=== PATIENT | female | born 1995 | race Caucasian/White ===

== ENCOUNTER 2023-09-08 08:26 | Outpatient (CLI) | payer OTHER, SELFPAY ==
[2023-09-08 14:12] LABS: Chlamydia DNA Amplified* NOT DETECTED (No Detected); GC DNA Amplified* NOT DETECTED (No Detected)
== END 2023-09-08 08:27 | disposition home or self-care (01) ==
PROVIDERS: Visit Provider Registered Nurse
DX: N93.9 Abnormal uterine and vaginal bleeding, unspecified (principal)
CPT/HCPCS: 84443; 84703; 87491; 87591

== ENCOUNTER 2023-10-18 07:55 | Outpatient (CLI) | payer OTHER, SELFPAY ==
--- NOTE | 2023-10-18 08:15 | CRLHL7_ITS ---
For Patients: As a result of the Century Cures Act, medical imaging exams and procedure reports are released immediately into your electronic medical record. You may view this report before your referring provider. If you have questions, please contact your health care provider. ADDENDUM: The impression should state: Endometrial thickness 1 cm. Oswaldo Navarro M.D. Diagnostic Radiologist [employer]. [email or web address] BROCK/jj D& Transcribed: 10:52 a.m. INDICATION: abnormal uterine bleeding COMPARISON: none TECHNIQUE: 2D savage scale and color Doppler images were acquired of the pelvis using a transabdominal and transvaginal approach. FINDINGS: Sonographic images demonstrate a normal size and smooth outer contour of the uterus. Uterus measures 7.4 cm in length by 3.5 cm in AP diameter by 4.0 cm in transverse dimension. The myometrium has a normal uniform echotexture. The endometrial lining measures 10 mm in composite thickness. The right ovary measures 3.2 x 2.0 x 1.6 cm in size and the left ovary measures 3.8 x 2.5 x 2.8 cm. The ovaries demonstrate normal arterial and venous blood flow on color Doppler analysis. Dominant follicle left ovary. Mild pelvic free fluid. IMPRESSION: Endometrial fluid 1 cm. No uterine fibroid. No endometrial fluid. Dictated by Oswaldo Navarro MD @ 10/18/2023 11:07:53 AM (Electronically Signed)
== END 2023-10-18 07:56 | disposition home or self-care (01) ==
LOC: US 07:55
PROVIDERS: Visit Provider Registered Nurse
DX: N93.9 Abnormal uterine and vaginal bleeding, unspecified (principal)
CPT/HCPCS: 76830; 76856

== ENCOUNTER 2023-11-16 15:54 | Outpatient (CLI) | payer BC, SELFPAY ==
--- NOTE | 2023-11-16 16:00 | CRLHL7_ITS ---
For Patients: As a result of the Cures Act, medical imaging exams and procedure reports are released immediately into your electronic medical record. You may view this report before your referring provider. If you have questions, please contact your health care provider. INDICATION: First trimester scan, establish dates. COMPARISON: None. TECHNIQUE: Real-time savage-scale imaging of the pelvis was performed. FINDINGS: Sonographic imaging demonstrates a single living intrauterine gestation. The embryo demonstrates a regular cardiac rate measuring 139 beats per minute. The embryo`s crown-rump length measurement of 0.92 cm corresponds to a gestational age of 7 weeks 0 days with a sonographic due date of July 04, 2024. There is a normal-appearing yolk sac measuring up to 3 mm. There are no gross abnormalities noted within the embryo at this early state of development. The placenta has not yet developed. The gestational sac has a normal appearance and there is no evidence of a perigestational hemorrhage. The amount of fluid within the sac appears appropriate for gestational age. The cervix is closed. The myometrium appears normal. The ovaries are of normal size. The right ovary measures 2.7 x 1.2 x 1.8 cm. The left ovary measures 5.1 x 3.4 x 4.0 cm. The left ovary contains a small corpus luteum cyst of measuring 3.6 x 3.3 x 3.8 cm. There are no suspicious fluid collections noted in the cul-de-sac. IMPRESSION: Normal first trimester OB ultrasound exam. Gestational age calculated at 7 weeks 0 days with a sonographic due date of July 04, 2024. Dictated by Trevor Torres MD @ 11/18/2023 10:17:51 AM (Electronically Signed)
== END 2023-11-16 15:55 | disposition home or self-care (01) ==
LOC: US 15:55
PROVIDERS: Visit Provider Advanced Practice Midwife
DX: Z34.91 Encounter for supervision of normal pregnancy, unspecified, first trimester (principal); Z3A.01 Less than 8 weeks gestation of pregnancy; O20.9 Hemorrhage in early pregnancy, unspecified
CPT/HCPCS: 76817; 86703; 86706; 86803; 86850; 86900; 86901; 87086; 87340

== ENCOUNTER 2023-11-16 16:25 | Outpatient (CLI) | payer BC, SELFPAY | END 2023-11-16 16:26 | disposition home or self-care (01) | PROVIDERS: Visit Provider Advanced Practice Midwife | DX: Z34.91 Encounter for supervision of normal pregnancy, unspecified, first trimester (principal); Z3A.01 Less than 8 weeks gestation of pregnancy | CPT/HCPCS: 86592; 86703; 86704; 86706; 86762; 86787; 86803; 86850; 86900; 86901; 87086; 87340 ==

== ENCOUNTER 2024-02-09 08:55 | Outpatient (CLI) | payer BC, SELFPAY ==
--- NOTE | 2024-02-09 09:15 | US_ITS ---
Patient: NEELIMA RUSSELL Facility:?[facility] Patient ID:?[id number] Site Patient ID:?[id number]. Site :?[id number] Study:?US-OB Pelvis OB ANATOMY-02/09/2024 10:23:03 AM Ordering Physician:?CAROLINE ARAUJO M.D. Final Report: INDICATION: Evaluate anatomy. COMPARISON: 11/16/2023 TECHNIQUE: Real time savage scale imaging of the fetus was performed as well as color Doppler analysis of the umbilical vessels. FINDINGS: Sonographic imaging demonstrates a single living intrauterine gestation. Fetus demonstrates a regular cardiac rate of 149 beats per minute. Fetus has a breech position. The placenta lies left anterior without evidence of placenta previa. Placental edge 5.4 cm from the internal cervical os. Amniotic fluid volume appears normal. Single deepest vertical pocket: 4.2 cm. The cervix is closed and measures 4.4 cm in length. The composite ultrasound gestational age is calculated at 19 weeks 3 days with an estimated sonographic due date of 07/02/2024. The estimated weight is 308 grams which lies at the 44th %. The following biometric measurements were obtained: Biparietal diameter: 4.1 cm/18 weeks 2 days 6th% Head circumference: 16.8 cm/19 weeks 3 days 30th% Abdominal circumference: 14.7 cm/20 weeks 0 days 55th% Femur length: 3.1 cm/19 weeks 4 days 35th% The HC/AC ratio measures: 1.14 range (1.08-1.26) On anatomic survey, there is a normal appearance of the cerebral ventricles, cavum septi pellucidi, cisterna magna and cerebellum. The nose, lips, and facial profile appear normal. The cervical, thoracic and lumbar spine are well visualized and appear normal. There is a normal four-chamber heart view and the left and right ventricular outflow tracts appear normal. The diaphragm and stomach appear normal. The kidneys and bladder also appear normal. There is a normal three-vessel cord and cord insertion site. The four extremities appear normal. IMPRESSION: Normal OB ultrasound exam with concordance of clinical and sonographic dating. No intrinsic abnormalities noted on anatomic survey. Dictated by Oswaldo Navarro MD @ 02/09/2024 4:35:37 PM Signed by:?Oswaldo Navarro MD @02/09/2024 4:35:37 PM (Electronic Signature)
== END 2024-02-09 08:56 | disposition home or self-care (01) ==
LOC: US 08:55
PROVIDERS: Visit Provider Obstetrics & Gynecology
DX: Z34.02 Encounter for supervision of normal first pregnancy, second trimester (principal); Z3A.19 19 weeks gestation of pregnancy
CPT/HCPCS: 76805

== ENCOUNTER 2024-04-04 16:44 | Outpatient (CLI) | payer BC, SELFPAY | END 2024-04-04 16:45 | disposition home or self-care (01) | PROVIDERS: Visit Provider Registered Nurse | DX: O26.892 Other specified pregnancy related conditions, second trimester (principal); Z67.91 Unspecified blood type, Rh negative; Z3A.27 27 weeks gestation of pregnancy; Z20.828 Contact with and (suspected) exposure to other viral communicable diseases | CPT/HCPCS: 86592; 86747; 86850; J2791 ==

== ENCOUNTER 2024-04-11 07:50 | Outpatient (CLI) | payer BC, SELFPAY | END 2024-04-11 07:51 | disposition home or self-care (01) | LOC: NFLDREF 04-15 11:19 | PROVIDERS: Visit Provider Registered Nurse | DX: R73.09 Other abnormal glucose (principal) | CPT/HCPCS: 82951; 82952 ==

== ENCOUNTER 2024-05-02 11:54 | Outpatient (CLI) | payer BC, SELFPAY ==
--- NOTE | 2024-05-02 12:15 | CRLHL7_ITS ---
For Patients: As a result of the Century Cures Act, medical imaging exams and procedure reports are released immediately into your electronic medical record. You may view this report before your referring provider. If you have questions, please contact your health care provider. OB ULTRASOUND Clinical History: ANTONETTE by LMP: 06/30/2024. GA: 31w, 4d. Comparison 02/09/2024, 11/16/2023. Single. INDICATION: Gestational diabetes mellitus. CERVIX: Not visualized. POSITIONING: Vertex. AMNIOTIC FLUID: 5.6 cm. BIOPHYSICAL PROFILE: Total score: 8. Gross body movements: 2. tone: 2. Respiratory activity: 2. Amniotic fluid: 2. PLACENTA: Technique: Transabdominal. PLACENTA POSITION: Anterior. DOPPLER: heart rate: 147 bpm. Biometry: BPD: 8.3 cm. 33w, 2d, 88 percent. HC: 30.2 cm. 33w, 3d, 66 percent. AC: 29.27 cm. 33w, 2d, 90 percent. FL: 6.1 cm. 31w, 6d, 43 percent. FL/AC ratio: 20.94 percent. HC/AC ratio: 1.03. EFW: 2069 g. Weight: 4 lbs, 9 oz. age by this US: 33w, 0d. ATNONETTE by this US: 06/20/2024. Percentile by ANTONETTE: 81 percent. IMPRESSION: 1. Estimated weight is at the 81st percentile. 2. Abdominal circumference is at the 90th percentile. 3. Normal biophysical profile score of 8/8. Daryn Srivastava M.D. Body/Diagnostic Radiologist [email or web address] SP/Dictated by: Daryn Srivastava MD @ 05/03/2024 9:55:00 AM (Electronically Signed)
== END 2024-05-02 11:55 | disposition home or self-care (01) ==
LOC: US 11:55
PROVIDERS: Visit Provider Obstetrics & Gynecology
DX: O24.419 Gestational diabetes mellitus in pregnancy, unspecified control (principal); Z3A.31 31 weeks gestation of pregnancy
CPT/HCPCS: 76816; 76819

== ENCOUNTER 2024-05-10 06:46 | Outpatient (CLI) | payer BC, SELFPAY ==
--- NOTE | 2024-05-10 07:00 | CRLHL7_ITS ---
For Patients: As a result of the Century Cures Act, medical imaging exams and procedure reports are released immediately into your electronic medical record. You may view this report before your referring provider. If you have questions, please contact your health care provider. Indication: Gestational diabetes mellitus. Assess well-being. Biophysical profile examination Technique: Sonography of the gravid uterus was performed limited to only about which is discussed below. The study is performed as per biophysical profile protocol Comparison: May 02, 2024 Findings: The cervix was not visualized. Position is vertex. The single deepest pocket is 6.8 centimeters. The placenta is anterior. heart rate is 155 beats per minute which is normal The biophysical profile score is 6/8. Two points were deducted for lack of headache respiratory activity as per protocol. This means no episodes of breathing movements lasting at least 30 seconds during the period of observation. Impression: The biophysical profile score is 6/8. On May 02, 2024, the score was 8/8. Dictated by Segun Schulz MD @ 05/10/2024 7:47:28 AM (Electronically Signed)
== END 2024-05-10 06:47 | disposition home or self-care (01) ==
LOC: US 06:47
PROVIDERS: Visit Provider Obstetrics & Gynecology
DX: O24.419 Gestational diabetes mellitus in pregnancy, unspecified control (principal)
CPT/HCPCS: 76819

== ENCOUNTER 2024-05-19 08:06 | Outpatient (CLI) | payer BC, SELFPAY ==
--- OUTSIDE RECORDS SUMMARY | 2024-05-19 08:08 | XMS_ITS | Clinical Summary ---
Author Organization [facility] [employer] [facility] Address [place], [place] [address] Care Team Providers Care Talent Specialist Name Role Phone Barbara Doe Unavailable [phone] Unavailable [phone] Braxton Avery RN Unavailable Ce Hale RD Unavailable [phone] Pcp, No Primary Care Provider Unavailabl e Allergies No known active allergies Medications Medication Sig Dispensed Refills Start Date End Date Status ketoconazole 2% shampoo (NIZORAL) 2 % shampooIndications: Rash Shampoo the hair thoroughly each day for 3 days. 120 mL 02/11/2019 Active albuterol HFA (PROAIR HFA) 90 mcg/actuation inhalerIndications: Exercise-induced asthma 1-2 puff by mouth 15 minutes prior to exercise as needed. 1 Inhaler 3 06/13/2020 Active Active Problems Patient Care Coordination No te Formatting of this note migh t be different from the original. Nutrition Order 11/25/2021 Problem Noted Date Diagnosed Date Eating disorder 01/07/2023 Obesity, Class II, BMI 35-39.9 01/07/2023 Weight gain 11/02/2022 H/O: obesity 12/02/2021 Controlled substance agreement signed 04/23/2021 Overview: For Medical Weight Loss. Verbal Agreement. [facility]acy: [facility] [place] [phone] Obesity, Class I, BMI 30-34.9 04/23/2021 Vitamin D insufficiency 02/25/2021 Obesity (BMI 30.0-34.9) 02/25/2021 Impaired fasting glucose 02/25/2021 Overweight 01/28/2021 Family history of premature coronary heart disea se 01/28/2021 Screening for endocrine/metabolic/immunity disor ders 01/28/2021 Acanthosis nigricans 07/05/2017 Family history of diabetes mellitus 07/05/2017 Overview: Both parents, mom on insulin Skin tags, multiple acquired 07/05/2017 Overview: Left axilla Exercise-induced asthma 01/13/2013 Attention deficit disorder with hyperactivity(31 4.01) 03/16/2007 Resolved Problems Problem Noted Date Diagnosed Date Resolved Date Viral warts, unspecified 06/29/200706/2013 Immunizations Name Administration Dates Next Due AMB Influenza, IIV3 (Age >=3 years) Preserve Free (Flu Clinic Only) 08/16/2012 AMB Influenza, IIV3 (Age >=3 years)(Flu Clinic Only) 08/03/2013,09/26/2008 AMB Influenza, IIV4 PF (=>6 mos Flulaval,Fluzone Fluarix)(Flu Clinic Only) 08/24/2014 DTaP 08/05/2000, 8,02/06/1997,06/08 HIB HbOC (HibTITER) 04/03/1998 HIB PRP-T (ActHIB,Hiberix) 1996 HIB-HepB (Comvax) 02/06/1997 HPV 9 (Gardasil 9) 04/16/2017,12/07/2016, 016 Hepatitis A (Peds) 06/14/2008,06/01/2007 Hepatitis B (Peds) 1996,1996 Inactivated Polio Vaccine 08/05/2000 Influenza A (H1N1), Inactiva dereck (Age >=3 Years) 09/25/2009 Influenza, IIV3 (Age >=3 years) 09/28/2007,12/22 Influenza, IIV4 08/23/2020,08/24/2018,08/26/2016 Influenza, IIV4 (=>6mos) MDV 08/17/2019 MMR 08/05/2000,04/03/1998 Meningococcal Vaccine (Menactra) 06/14/2008 Meningococcal Vaccine (Menveo) 04/16/2015 Oral Polio Vaccine 04/03/1998,02/06/1997, 996 Td (Age >=7 Years) 08/24/2018 Tdap 06/14/2008 Tuberculin (PPD) 02/27/2013 Family History Medical History Relation Name Comments Diabetes Father Hyperlipidemia Father Hypertension Father Obesity Father Stroke Father Asthma Maternal Grandfather Cancer Maternal Grandfather lung Cancer Maternal Grandmother multipl e types of cancers, doing well Cancer-breast Maternal Grandmother Cancer-colon Maternal Grandmother Diabetes Mother Hypertension Mother Obesity Mother Stroke Mother Asthma Sister exercise induce d Anesthesia Problem No Family History Blood Disease No Family History Relation Name Status Comments Father Maternal Grandfather Maternal Grandmother Mother Sister Social History Tobacco Use Types Packs/Day Years Used Date Smoking Tobacco: Never Smokeless Tobacco: Never Tobacco Cessation:Counseling Given: Not Answered Alcohol Use Standard Drinks/Week Comments Not Currently 0 (1 standard drink = 0.6 oz pur e alcohol) 3 times a year PHQ-2 Answer Date Recorded PHQ-2 TOTAL SCORE 0 01/28/2021 Social Connections Answer Date Recorded Frequency of Communication with Friends and Fami ly Not on file 11/08/2023 Financial Resource Strain Answer Date R ecorded Difficulty of Paying Living Expenses 3 11/06/2022 Difficulty of Paying Living Expenses Not on file 11/06/2022 Food Insecurity Answer Date Recorded Worried About Running Out of Food in the Last Ye ar 1 11/06/2022 Transportation Needs Answer Date Record ed Lack of Transportation (Medical) 1 11/06/2022 Housing Stability Answer Date Recorded Unable to Pay for Housing in the Last Year 1 11/06/2022 Education Answer Date Recorded What is the highest level of school you have completed or the highest degree you have received? 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 Gender Identity Not on file Sexual Orientation Not on file Obstetrics History Para Term AB IAB SAB Ectopic Multiple Livin g Live Births 0 0 0 0 0 0 0 0 0 0 Last Filed Vital Signs Vital Sign Reading Time Taken Comments Blood Pressure 124/83 06/28/2023 8:00 AM CDT patient reported Pulse 87 06/28/2023 8:00 AM CDT patient reported Temperature 37.1 ??C (98.7 ??F) 03/12/2022 4 :22 PM CDT Respiratory Rate - - Oxygen Saturation 97% 11/06/2022 10: 29 AM MOTORBOAT MECHANIC HELPER Inhaled Oxygen Concentration - - Weight 87.5 kg (193 lb) 07/09/2023 3:00 PM CDT Height 158.1 cm (5' 2.24) 07/09/2023 3 :00 PM CDT Body Mass Index 35.02 07/09/2023 3:00 PM CDT Plan of Treatment Health Maintenance Due Date Last Done Comments HIV for age 15-65 2011 Hepatitis C screening for age 18-79 2014 Depression screening for age 12+ 01/29/2022 01/29/2021, 01/28/2021, 01/28/2021, Additional history exists COVID-19 vaccine series () 07/09/2023 12/04/2021, 01/10/2021, 12/13/2020 BMI (ht and wt on same day) for age 18+ 07/09/2024 07/09/2023, 04/29/2023, 02/18/2023, Additional history exists Influenza for age 9-49 07/09/2024 0, 08/17/2019, 08/24/2018, Additional history exists Pap test for age 21-65 09/08/2026 3, 09/08/2023, 08/15/2020, Additional history exists Tetanus booster 08/24/2028 08/24/2018, 06/14/2008 Tdap Completed 06/14/2008 Pneumococcal series for age 6-64 Aged Out No longer eligible based on patient's age to complete this topic Procedures Procedure Name Priority Date/Time Associated Diagnosis Comments HPV THIN PREP Routine 09/08/2023 12:00 PM CDT from Last 3 Months or Most Recently Relevant to Health Maintenance Results * HPV HIGH RISK (09/08/2023 12:00 PM CDT) TYPE 16 Negative Negative 09/10/2023 1:47 PM CDT [facility] TYPE 18 Negative Negative 09/10/2023 1:47 PM CDT [facility] TRAL LAB[facility]ORY OTHER HIGH RISK TYPES Negative Negative 09/10/2023 1:47 PM CDT [facility] TRA LABOR[facility] Other (Cervical) 09/08/2023 12:00 PM CDT 09/08/2023 5:35 PM CDT Narrative [facility] - 09/10/2023 1:47 PM CDT HPV types 16, 18, 31, 33, 35, 39, 45, 51, 52, 56, 58, 59, 66 and 68 DNA were undetectable or below the pre-set threshold. Methodology: Jay Owen 4800 HPV Test Delmy Kelly NP MICROBIOLOGY [facility] [address] [place] [address], from Last 3 Months or Most Recently Relevant to Health Maintenance Care Teams Talent Specialist Relationship Specialty Start Date End Date Pcp, No . PCP - General 05/20/23 Barbara Doe CASH PROCESSING SPECIALIST [address] [place] [address] Nurse Practitioner Clinical Nurse Specialist 01/07/21 Samara Mauricio, RD [address] [place] [address] Registered Dietitian Casino Enforcement Agent 01/07/21 Braxton Avery, RN [address] [place] [address] Registered Nurse Registered Nurse 01/07/[address] [address] Casino Enforcement Agent 10/27/22
--- NOTE | 2024-05-19 08:15 | CRLHL7_ITS ---
For Patients: As a result of the Century Cures Act, medical imaging exams and procedure reports are released immediately into your electronic medical record. You may view this report before your referring provider. If you have questions, please contact your health care provider. INDICATION: GDM COMPARISON: 05/10/2024 TECHNIQUE: Real time savage scale imaging of the fetus was performed. Without non-stress testing. FINDINGS: Sonographic imaging demonstrates a single living intrauterine gestation. Fetus demonstrates a regular cardiac rate of 155 beats per minute. Fetus has a vertex position. The amniotic fluid volume appears normal and there is a single deepest pocket measurement of 4.4 cm. The fetus was active and demonstrated normal breathing movements. There was normal flexion and extension of the trunk and extremities. IMPRESSION: Normal biophysical profile score of 8 out of 8. Dictated by Oswaldo Navarro MD @ 05/20/2024 7:31:46 PM (Electronically Signed)
== END 2024-05-19 08:07 | disposition home or self-care (01) ==
LOC: US 08:07
PROVIDERS: Visit Provider Obstetrics & Gynecology
DX: O24.419 Gestational diabetes mellitus in pregnancy, unspecified control (principal)
CPT/HCPCS: 76819

== ENCOUNTER 2024-05-24 08:45 | Outpatient (CLI) | payer BC, SELFPAY ==
--- NOTE | 2024-05-24 08:45 | CRLHL7_ITS ---
For Patients: As a result of the Century Cures Act, medical imaging exams and procedure reports are released immediately into your electronic medical record. You may view this report before your referring provider. If you have questions, please contact your health care provider. INDICATION: GDM COMPARISON: 05/19/2024 TECHNIQUE: Real time savage scale imaging of the fetus was performed. Without non-stress testing. FINDINGS: Sonographic imaging demonstrates a single living intrauterine gestation. Fetus demonstrates a regular cardiac rate of 152 beats per minute. Fetus has a vertex position. The amniotic fluid volume appears normal and there is a single deepest pocket measurement of 4.8 cm. The fetus was active and demonstrated normal breathing movements. There was normal flexion and extension of the trunk and extremities. IMPRESSION: Normal biophysical profile score of 8 out of 8. Dictated by Oswaldo Navarro MD @ 05/25/2024 9:45:02 AM (Electronically Signed)
--- OUTSIDE RECORDS SUMMARY | 2024-05-24 08:47 | XMS_ITS | Clinical Summary ---
Author Organization [employer] [facility] [employer] Address [place], [place] [address] Care Team Providers Care Bottle Capping Machine Operator Name Role Phone Barbara Doe Unavailable [phone] Unavailable [phone] Braxton Avery RN Unavailable Ce Hale RD Unavailable [phone] Pcp, No Primary Care Provider Unavailabl e [...] Loss. Verbal Agreement. Pharmacy: [facility] [place] [phone] Obesity, Class I, BMI 30-34.9 04/23/2021 Vitamin [...] recorded on cert ificate 09/30/2021 1:23 PM CHIEF TECHNICIAN Gender Identity Not on file Sexual Orientation [...] Oxygen Saturation 97% 11/06/2022 10: 29 AM CHIEF TECHNICIAN Inhaled Oxygen Concentration - - Weight 87.5 [...] 16 Negative Negative 09/10/2023 1:47 PM CDT [facility] TRAL LABORATORY TYPE 18 Negative Negative 09/10/2023 1:47 PM CDT [facility] TRAL LAB[facility] OTHER HIGH RISK TYPES Negative Negative 09/10/2023 1:47 PM CDT [facility] TRA LABORATORY Other (Cervical) 09/08/2023 12:00 PM CDT 09/08/2023 5:35 PM CDT Narrative [facility] - 09/10/2023 1:47 PM CDT HPV types 16, 18, 31, 33, 35, 39, 45, 51, 52, 56, 58, 59, 66 and 68 DNA were undetectable or below the pre-set threshold. Methodology: Jay Owen 4800 HPV Test Delmy Kelly NP MICROBIOLOGY [facility] [address] [place] [address], from Last 3 Months or Most Recently Relevant to Health Maintenance Care Teams Bottle Capping Machine Operator Relationship Specialty Start Date End Date Pcp, No . PCP - General 05/20/23 Barbara Doe X RAY EQUIPMENT TESTER [address] [place] [address] Nurse Practitioner Clinical Nurse Specialist 01/07/21 Samara Mauricio, RD [address] [place] [address] Registered Dietitian Digital Marketing Specialist 01/07/21 Braxton Avery, RN [address] [place] [address] Registered Nurse Registered Nurse 01/07/[address] [address] Digital Marketing Specialist 10/27/22
== END 2024-05-24 08:46 | disposition home or self-care (01) ==
LOC: US 08:45
PROVIDERS: Visit Provider Obstetrics & Gynecology
DX: O24.419 Gestational diabetes mellitus in pregnancy, unspecified control (principal)
CPT/HCPCS: 76819

== ENCOUNTER 2024-05-31 09:51 | Outpatient (CLI) | payer BC, SELFPAY ==
--- OUTSIDE RECORDS SUMMARY | 2024-05-31 09:54 | XMS_ITS | Clinical Summary ---
Author Organization [employer] [facility] [employer] [facility] Address [place], [place] [address] Care Team Providers Care Whipper Name Role Phone Barbara Doe Unavailable [phone] Unavailable [phone] Braxton Avery RN Unavailable Ce Hale RD Unavailable [phone] Pcp, No Primary Care Provider Unavailabl e [...] Loss. Verbal Agreement. 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 Gender Identity Not on file Sexual Orientation [...] Oxygen Saturation 97% 11/06/2022 10: 29 AM CASHIER GAMBLING Inhaled Oxygen Concentration - - Weight 87.5 [...] 16 Negative Negative 09/10/2023 1:47 PM CDT [facility] TRAL LABORAT[facility] TYPE 18 Negative Negative 09/10/2023 1:47 PM CDT [facility] TRAL LABORATORY OTHER HIGH RISK TYPES Negative Negative 09/10/2023 1:47 PM CDT [facility] TRA LABORATORY Other (Cervical) 09/08/2023 12:00 PM CDT 09/08/2023 5:35 PM CDT Narrative [facility] - 09/10/2023 1:47 PM CDT HPV types 16, 18, 31, 33, 35, 39, 45, 51, 52, 56, 58, 59, 66 and 68 DNA were undetectable or below the pre-set threshold. Methodology: Jay Owen 4800 HPV Test Delmy Kelly NP MICROBIOLOGY [facility] [address] [place] [address], from Last 3 Months or Most Recently Relevant to Health Maintenance Care Teams Whipper Relationship Specialty Start Date End Date Pcp, No . PCP - General 05/20/23 Barbara Doe RIGGER SUPERVISOR [address] [place] [address] Nurse Practitioner Clinical Nurse Specialist 01/07/21 Samara Mauricio, RD [address] [place] [address] Registered Dietitian Marketing Automation Specialist 01/07/21 Braxton Avery, RN [address] [place] [address] Registered Nurse Registered Nurse 01/07/[address] [address] Marketing Automation Specialist 10/27/22
[2024-05-31 09:59] VITALS: TEMP 36.7
--- NOTE | 2024-05-31 11:35 | PC.OBNST ---
NST Note NST Note Start: 05/31/24 09:51 Freq: ONCE Status: Active Protocol: Document 05/31/24 11:30 CUDDYH (Rec: 05/31/24 11:34 CUDDYH [id number]) NST Note 1 Para (# of births) 0 EDC 06/30/24 Gestational Age In Weeks & Days 35 Weeks & 5 Days High Risk Factors Diabetes - Gestational Insulin Patient Presented with Complaint(s) of Other Other Complaints Pt sent from clinic for a BPP of 02/13. Reactive Yes Appropriate for Gestational Age Yes RN Briana Alberto RN Date 05/31/24 Reactive Yes Appropriate for Gestational Age Yes RN Dr. Tillman Date 05/31/24 OB NST charge Yes Complete NST Note via Write Note Yes The provider's electronic signature indicates the NST is reactive/appropriate for gestational age. *Note to provider: If an addendum is required, open the patient's chart and click on the note under the Nurse/Allied Health tab.
--- NOTE | 2024-05-31 11:48 | PM.OBLDTN ---
OB - Triage/Final Diagnosis Visit Information Time Seen by Provider: 11:35 Date Seen: 05/31/24 Narrative: The patient is a 29 year old 1 para 0 at 35w5d GA by LMP, who presents for monitoring after a 4/8 BPP prior to a planned OB visit. Ob visit was canceled, where patient presented for extended monitoring in OB triage. is complicated by GDM A2, exercise-induced asthma, obesity. Lauren is feeling well today with no acute concerns. She notes intermittent cramping sensation but only if she has a full bladder. She denies any regular/painful uterine contractions, vaginal bleeding or leaking of fluid. Endorses active movement. Evaluation Vital signs: Vital Signs - 24 hr 05/31/24 09:59 Temperature 98.0 F Comments: General: Alert and oriented, in no acute distress Psych: Appropriate mood and affect monitoring: Extended monitoring was performed for nearly 2 hours. Throughout this time, status was entirely reassuring. Final 20 minutes of monitoring to complete her BPP included a baseline of 140 beats per minute, moderate variability, accelerations present, no decelerations noted. In total, she had a 6/10 BPP today. [place]: Contractions every few minutes, asymptomatic. Nonpalpable by RN exam. Final Diagnosis (1) Abnormal test: Status: Acute Problem details: Lauren had nearly 2 hours of extended monitoring after a 4/8 BPP prior to planned clinic visit. status was entirely reassuring throughout this time. Reactive NST, making her total BPP 6/10. We reviewed the significance of an equivocal biophysical profile and the negative and positive predictive values of monitoring in general. Given her gestation, explained that we are recommended to repeat her BPP in 24 hours given an equivocal result. Orders placed, scheduled for follow-up tomorrow. Explained if she had an abnormal test result tomorrow, this may warrant medically indicated delivery. I explained that betamethasone would not be indicated for late steroids in the setting of GDM A2. All questions answered, strict return precautions reinforced. (2) GDM, class A2: Status: Acute (3) ADD (attention deficit disorder): Status: Acute Problem details: untreated (4) Obesity: Status: Chronic (5) Exercise-induced asthma: Status: Chronic Problem details: has not recently used inhaler
== END 2024-05-31 11:30 | disposition home or self-care (01) ==
LOC: OB OUT 09:51 → OB 09:51
PROVIDERS: Visit Provider Obstetrics & Gynecology
DX: O24.419 Gestational diabetes mellitus in pregnancy, unspecified control (principal); Z3A.35 35 weeks gestation of pregnancy
CPT/HCPCS: 59025; 76816; 76819; G0463

== ENCOUNTER 2024-06-01 10:40 | Outpatient (CLI) | payer BC, SELFPAY ==
--- NOTE | 2024-06-01 10:45 | CRLHL7_ITS ---
For Patients: As a result of the Century Cures Act, medical imaging exams and procedure reports are released immediately into your electronic medical record. You may view this report before your referring provider. If you have questions, please contact your health care provider. INDICATION: GDM COMPARISON: 05/31/2024 TECHNIQUE: Real time savage scale imaging of the fetus was performed. Without non-stress testing. FINDINGS: Sonographic imaging demonstrates a single living intrauterine gestation. Fetus demonstrates a regular cardiac rate of 155 beats per minute. Fetus has a vertex position. The amniotic fluid volume appears normal and there is a single deepest pocket measurement of 7.2 cm. The fetus was active and demonstrated normal breathing movements. There was normal flexion and extension of the trunk and extremities. IMPRESSION: Normal biophysical profile score of 8 out of 8. Dictated by Oswaldo Navarro MD @ 06/02/2024 11:21:10 AM (Electronically Signed)
--- OUTSIDE RECORDS SUMMARY | 2024-06-01 10:54 | XMS_ITS | Clinical Summary ---
Author Organization [facility] [employer] [facility] Address [place], [place] [address] Care Team Providers Care Blood Bank Specialist Name Role Phone Barbara Doe Unavailable [phone] Unavailable [phone] Braxton Avery RN Unavailable Ce Hale RD Unavailable [phone] Pcp, No Primary Care Provider Unavailabl e [...] Loss. Verbal Agreement. Pharmacy: [facility] [place] [phone] Obesity, Class I, BMI 30-34.9 04/23/2021 Vitamin [...] recorded on cert ificate 09/30/2021 1:23 PM RESPIRATORY THERAPIST ASSISTANT Gender Identity Not on file Sexual Orientation [...] Oxygen Saturation 97% 11/06/2022 10: 29 AM RESPIRATORY THERAPIST ASSISTANT Inhaled Oxygen Concentration - - Weight 87.5 [...] 16 Negative Negative 09/10/2023 1:47 PM CDT [facility] TRAL LABORATORY TYPE 18 Negative Negative 09/10/2023 1:47 PM CDT [facility] TRAL LABORATORY OTHER HIGH RISK TYPES Negative Negative 09/10/2023 1:47 PM CDT [facility] TRA LABORATORY Other (Cervical) 09/08/2023 12:00 PM CDT 09/08/2023 5:35 PM CDT Narrative [facility] LABORATORY - 09/10/2023 1:47 PM CDT HPV types 16, 18, 31, 33, 35, 39, 45, 51, 52, 56, 58, 59, 66 and 68 DNA were undetectable or below the pre-set threshold. Methodology: Jay Owen 4800 HPV Test Delmy Kelly NP MICROBIOLOGY [facility] [address] [place] [address], from Last 3 Months or Most Recently Relevant to Health Maintenance Care Teams Blood Bank Specialist Relationship Specialty Start Date End Date Pcp, No . PCP - General 05/20/23 Barbara Doe CURATOR OF MANUSCRIPTS [address] [place] [address] Nurse Practitioner Clinical Nurse Specialist 01/07/21 Samara Mauricio, RD [address] [place] [address] Registered Dietitian Aerial Applicator Pilot 01/07/21 Braxton Avery, RN [address] [place] [address] Registered Nurse Registered Nurse 01/07/[address] [address] Aerial Applicator Pilot 10/27/22
== END 2024-06-01 10:41 | disposition home or self-care (01) ==
LOC: US 10:41
PROVIDERS: Visit Provider Obstetrics & Gynecology
DX: O24.419 Gestational diabetes mellitus in pregnancy, unspecified control (principal)
CPT/HCPCS: 76819; 87081; 87653

== ENCOUNTER 2024-06-08 16:06 | Inpatient (IN) | payer BC, SELFPAY ==
--- OUTSIDE RECORDS SUMMARY | 2024-06-08 16:10 | XMS_ITS | Clinical Summary ---
Author Organization [facility] Address [place], [place] [address] Care Team Providers Care Retread Technician Name Role Phone Barbara Doe Unavailable [phone] Unavailable [phone] Braxton Avery RN Unavailable Ce Hale RD Unavailable [phone] Pcp, No Primary Care Provider Unavailabl e [...] Loss. Verbal Agreement. Pharmacy: [facility] [place] [phone] Obesity, Class I, BMI 30-34.9 04/23/2021 Vitamin [...] recorded on cert ificate 09/30/2021 1:[address] VENDOR Gender Identity Not on file Sexual Orientation [...] Oxygen Saturation 97% 11/06/2022 10: [address] VENDOR Inhaled Oxygen Concentration - - Weight 87.5 [...] 16 Negative Negative 09/10/2023 1:47 PM CDT [facility] TRAL LABORATORY TYPE 18 Negative Negative 09/10/2023 1:47 PM CDT [facility] TRAL LABORATORY OTHER HIGH RISK TYPES Negative Negative 09/10/2023 1:47 PM CDT [facility] TRA LABORATORY Other (Cervical) 09/08/2023 12:00 PM CDT 09/08/2023 5:35 PM CDT Narrative [facility] LABORATORY - 09/10/2023 1:47 PM CDT HPV types 16, 18, 31, 33, 35, 39, 45, 51, 52, 56, 58, 59, 66 and 68 DNA were undetectable or below the pre-set threshold. Methodology: Jay Owen 4800 HPV Test Delmy Kelly NP MICROBIOLOGY [facility] [address] [place] [address], from Last 3 Months or Most Recently Relevant to Health Maintenance Care Teams Retread Technician Relationship Specialty Start Date End Date Pcp, No . PCP - General 05/20/23 Barbara Doe BALLASTER [address] [place] [address] Nurse Practitioner Clinical Nurse Specialist 01/07/21 Samara Mauricio, RD [address] [place] [address] Registered Dietitian Foot Tender 01/07/21 Braxton Avery, RN [address] [place] [address] Registered Nurse Registered Nurse 01/07/[address] [address] Foot Tender 10/27/22
--- NOTE | 2024-06-08 16:28 | W.PM.LDBA ---
Subjective History of Present Illness Time Seen by Provider: 16:53 Date Seen: 06/08/24 Narrative: Lauren is a 29yo is being admitted to Labor and Delivery for induction of labor due to preeclampsia without severe features and insulin-requiring gestational diabetes. She is a 29 year old at 36 weeks 6 days gestation. Her full history and physical was dictated by Dr. Argueta on 06/06/2024. Please see this for details. Specific Issues/Plans Partner: Jcarlos [id number]: neg, male gender H&P by CGM on 06/06/24 # GDM A2- 18 units of NPH at nightime. - Seeing a sweet pickled fruit maker on 04/18 - 05/04/2024: Diabetes education and initiation of insulin. surveillance, twice weekly. Order form completed Greater than 50% fastings elevated, normal post prandials. 12 units NPH at at bedtime -05/12/24: No improvement in fasting glucose levels. Increased to 14 units NPH at HS. -05/19/24: Fastings still mildly elevated. Increased to 16 u NPH at HS. -05/24/24: Increased to 18u NPH QHS. -06/01/24: IOL scheduling form sent out for 06/23/24 at 39 weeks #Elevated BP at 36 4/7 weeks -Sent to L&D for further monitoring # BMI 38. -aspirin at 12 weeks, started -Recommend growth in third trimester and consider weekly testing after 36 weeks # Hx of asthma, denies recent inhaler use # RH negative 28 wk Rhogam: 04-04-24 # Possible parvovirus exposure. Positive IgG, Negative IgM. Imaging: Growth US at 32 weeks: EFW 4 lb 9 oz (81%), AC 90%, SDP 5.6 cm, vertex Growth at 36 weeks 05/21/24:Single intrauterine gestation in a vertex presentation. Estimated weight is 2916 grams which corresponds to the 68th percentile for gestational age. COVID: Flu: TDAP:04/17/24 OB - Problem Based A/P Additional Plan (1) Pre-eclampsia during in third trimester, antepartum: Status: Acute Plan: 1. Admission for cervical ripening with vaginal Cytotec overnight. 2. Dr. Billie Tillman with assume care tomorrow at 7AM on 06/09/2024 3. GBS negative. 4. Bloodtype O negative. 5. Plan Pitocin by labor/induction protocol starting tomorrow morning. OB Exam Physical Exam Narrative: GENERAL APPEARANCE: Pleasant, , well-groomed woman in no acute distress. VITAL SIGNS: as noted in nursing notes HEAD: Normocephalic, atraumatic. THYROID: no masses, nodularity, tenderness or enlargement. LUNGS: Clear to auscultation bilaterally without wheezes, rales or rhonchi. HEART: Regular rate and rhythm with normal S1 and S2. No gallop, rub or murmur. ABDOMEN: Gravid. Soft, nontender, nondistended, with normal bowels sounds throughout. EFM: Baseline 140bpm. Accelerations: Present. Decelerations: Absent. Contractions: Absent. Reactive, category 1 TOCO: irritability. No specific contractions. SVE: 0.5/70/-2/mid/medium. Guthrie score: 5. EXTREMITIES: No cyanosis, clubbing, or varicosities. Edema: none NEUROLOGIC: Normal gait and balance. Normal deep tendon reflexes at bilateral patella 2+/2, equal without clonus. PSYCHIATRIC: alert and oriented x3. Normal speech pattern, eye contact and affect. SKIN: Warm, dry, and well perfused. Good turgor. No lesions, nodules or rashes.
[2024-06-08 16:43] VITALS: BP 131/78; PULSE 101; RESP 20; TEMP 36.8; O2SAT 98
[2024-06-08 16:53] VITALS: BMI 41.8
[2024-06-08 17:41] LABS: Hematocrit 33.8 % (33.0-51.0); Hemoglobin* 11.1 gm/dL (12.0-16.0); Mean Corpuscular HGB Conc 33 gm/dL (32-36); Mean Corpuscular Hemoglobin 26 pg (26-34); Mean Corpuscular Volume 80 fL (80-100); Platelet Count* 277 K/uL (140-440); Red Blood Count 4.23 m/uL (4.00-5.20); White Blood Count* 14.48 K/uL (4.50-11.00)
[2024-06-08 17:44] LABS: Slide Review Reflex No
[2024-06-08 17:56] LABS: Alanine Aminotransferase* 19 U/L (4-35); Aspartate Amino Transferase* 22 U/L (12-35); Blood Urea Nitrogen* 9 mg/dL (5-24); Creatinine* 0.5 mg/dL (0.5-1.5); Est. Creatinine Clearance* 132.49; Estimated Glomerular Filt Rate 131 ml/min
[2024-06-08] MEDS: miSOPROStoL 25 MCG/0.25 TABLET VAGINAL ×2 (18:08→21:15)
[2024-06-08] MEDS: INSULIN NPH 100 UNIT/ML 9 UNIT SUBCUT (21:09)
[2024-06-08] MEDS: MORPHINE 10 MG/ML inj IM (21:14)
[2024-06-08] MEDS: hydrOXYzine pamoate 25 MG CAPSULE 100 MG PO (21:14)
[2024-06-08 21:22] VITALS: BP 145/77; PULSE 83
[2024-06-08 21:23] VITALS: BP 145/79; PULSE 75; PULSE 81; RESP 18; TEMP 37.1
[2024-06-08] MEDS: ONDANSETRON 2 MG/ML inj 4 MG IV (21:41)
[2024-06-09] VITALS (12 sets, daily range): BP systolic 110–139; BP diastolic 57–94; PULSE 67–105; RESP 18; TEMP 36.3–36.9; O2SAT 98–99
[2024-06-09] MEDS: miSOPROStoL 25 MCG/0.25 TABLET VAGINAL ×3 (00:09→06:22)
--- NOTE | 2024-06-09 07:46 | PM.OBPNL ---
Subjective Time Seen by Provider: 07:46 Date Seen: 06/09/24 Narrative: Lauren Qureshi is a 29yo at 37w0d GA ongoing IOL for preeclampsia without severe features and GDMA2 on insulin. Induction progress has included cytotec x6, last dose placed at 0622. She is feeling well, endorses cramping with cytotec. No vaginal bleeding or leaking of fluids. Endorses active movement. Objective Vital Signs: Last Vital Signs Temp 97.7 F 06/09/24 07:30 Pulse 73 06/09/24 07:30 Resp 18 06/09/24 06:12 BP 123/81 06/09/24 07:30 Pulse Ox 99 06/09/24 07:30 Comments: General: Alert and oriented, in no acute distress. Rocking on labor ball. Cervix: /-2 by last RN exam FHR: Category 1. Baseline 130bpm, moderate variability, accelerations present, decelerations absent [place]: Alicia Q2-5 minutes EFW by US on 06/03: 2916g at 68%ile. Plan Plan: Lauren is a 29yo at 37 weeks ongoing IOL for preeclampsia without SF. is otherwise complicated by GDMA2 (insulin), ADD and exercise-induced asthma. - IOL progress has included cytotec x6, last at 0622. Her exam at that time was /-2 by RN. - Plan to recheck cervix at approximately 1030, likely plan will be further cervical ripening via cook catheter vs pitocin pending Guthrie score. - Continue BP monitoring, no signs/symptoms of severe features at this time - Continue BG monitoring per protocol, has not required short acting insulin since admission - BT O negative, active T/S on file - GBS negative
[2024-06-09] MEDS: MORPHINE 10 MG/ML inj IM (12:20)
[2024-06-09] MEDS: LACTATED RINGERS 1000 ML 1,000 ML 125 ML IV (16:33)
[2024-06-09] MEDS: OXYTOCIN 30 unit/500 ML in NS 30 UNIT/500 ML BAG IVPB (16:40)
[2024-06-09] MEDS: INSULIN NPH 100 UNIT/ML 9 UNIT SUBCUT (20:56)
[2024-06-09] MEDS: LACTATED RINGERS 1000 ML 1,000 ML 925 ML IV (23:53)
[2024-06-10] VITALS (74 sets, daily range): BP systolic 88–145; BP diastolic 41–92; PULSE 65–112; RESP 14–18; TEMP 36.4–36.9; O2SAT 92–100
[2024-06-10] MEDS: ROPIVACAINE 0.2% 100 ml 100 ML 12 MG EPIDURAL (00:34)
[2024-06-10] MEDS: BUPIVACAINE 0.25% PF 10 ML 10 ML ML EPIDURAL (00:34)
[2024-06-10] MEDS: PHENYLEPHRINE 100 MCG/ML SYRINGE IVP (00:40)
--- NOTE | 2024-06-10 00:42 | P.ANBPRC_ITS ---
PFSH PFS Medical History 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 (ICD-10) Surgical History History of tympanoplasty ?Z98.890 - Other specified postprocedural states (ICD-10) History of tonsillectomy and adenoidectomy ?Z90.89 - Acquired absence of other organs (ICD-10) History of wisdom tooth extraction ?K08.409 - Partial loss of teeth, unspecified cause, unspecified class (ICD- 10) History of cholecystectomy (04/12/17) ?Z90.49 - Acquired absence of other specified parts of digestive tract (ICD- 10) Family History Mother High blood pressure Diabetes Stroke Obesity Father High blood pressure Diabetes High cholesterol Stroke Obesity Maternal Grandfather Lung cancer Maternal Grandmother Breast cancer Colon cancer 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 ? Education: bachelors ? 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 ? Partner: Jcarlos, , general repair mechanic? ? Lives with: Jcarlos? ? Pets: dogs? ? Abuse: Denies past. Unable to assess current, partner present? ? Special Diet: Denies? ? Ok with a blood transfusion: yes? ? Culture or sabianism beliefs: denies? RISK FACTORS? ? Exercise Times/wk: Walking, less so now. ? ? Depression/Anxiety: denies? ? Previous Treatments: NA Therapy:NA Seat Belt Use: Routinely ? Smoking: Denies past/present? ? Alcohol/day: Denies while ? ? Caffeine: minimal? ? Drug Use: Denies past/present? ? What is your current living situation?: I presently have a place to live Problems where you live: no known problems In the past 12 months, utilities in danger of being shut off: no In past 12 months, lack of transportation kept you from medical appts, meetings, work, or getting things needed for daily living: no In the past 12 mos, have been you worried that your food would run out before you had money to buy more?: never true In the past 12 mos, the food you bought just didn't last and you didn't have money to buy more?: never true Smoking Status: Former smoker How often does anyone, including family, friends and others, physically hurt you : never How often does anyone, including family, friends and others, insult or talk down to you: never How often does anyone, including family, friends and others, threaten you with harm: never How often does anyone, including family, friends and others, scream or curse at you: never Little interest or pleasure in doing things: not at all Feeling down, depressed, or hopeless: not at all Meds Home Medications and Allergies Home Medications ?Medication ?Instructions ?Recorded ?Confirmed ?Type albuterol 90 mcg/actuation aerosol 2 spray inhalation BID-QID PRN 03/30/23 06/08/24 History inhaler docosahexaenoic acid 200 mg 1 mg PO 11/16/23 06/06/24 History capsule ( DHA) cholecalciferol (vitamin D3) 125 125 mcg PO QDAY 12/14/23 06/08/24 History mcg (5,000 unit) capsule aspirin 81 mg tablet,delayed 81 mg PO QDAY 01/12/24 06/08/24 History release (Cal Low Dose Aspirin) insulin NPH isoph U-100 human 100 18 unit subcut .hs 05/24/24 06/08/24 History unit/mL subcutaneous suspension (Humulin N NPH U-100 Insulin (isophane susp)) Allergies Allergy/AdvReac Type Severity Reaction Status Date / Time No Known Drug Allergies Allergy Verified 06/06/24 09:44 Results Labs Labs: Laboratory Results - last 24 hr 06/08/24 17:33 Antibody Identification No Antibodies Found by ARC Vital Signs Vital Signs: Last Vital Signs Temp 97.9 F 06/09/24 22:52 Pulse 75 06/10/24 00:42 Resp 18 06/09/24 06:12 BP 130/85 06/10/24 00:42 Pulse Ox 99 06/10/24 00:38 Weight: 103.782 kg Height: 157.48 cm Anesthesia Procedures Epidural Insertion Patient Location: OB Start Time: 00:15 Stop Time: 00:43 Start Date: 06/10/24 Stop Date: 06/10/24 Reason for Block: procedure for pain Patient Position: sitting Performed By: Bernard Mclain Preanesthetic Checklist: IV checked, risks and benefits discussed, monitors and equipment checked, pre-op evaluation, timeout performed and anesthesia consent Prep: chlorhexidine gluconate Monitoring: blood pressure monitoring, continuous pulse oximetry and heart rate Approach: midline Vertebral Space: lumbar (1-5) Epidural Technique: DINORAH saline Needle Type: Tuohy needle Injection Technique: continuous catheter Needle gauge: 17 Needle Length (cm): 10 cm Needle Insertion Depth (cm): 9 Catheter Gauge: 19 Catheter Type: multi-orifice Catheter at skin depth (cm): 15 Test Dose Result: negative and lidocaine 1.5% with epinephrine 1 to 200,000
[2024-06-10] MEDS: LACTATED RINGERS 1000 ML 1,000 ML 125 ML IV (00:59)
--- NOTE | 2024-06-10 02:24 | PM.OBPNL ---
Subjective Time Seen by Provider: 02:04 Date Seen: 06/10/24 Narrative: Lauren Qureshi is a 29yo at 37w0d GA ongoing IOL for preeclampsia without severe features and GDMA2 on insulin. Induction progress has included cytotec x6, cook catheter, pitocin. She was last 5/80/-3 by RN exam at 0000, requested epidural before AROM. She subsequently had some hypotension with associated category 2 FHR tracing, improved now with cessation of pitocin, BP support, IVF and position changes. I presented to bedside where Lauren notes she is comfortable. Feels groggy overall but has no nausea/vomiting or dizziness/lightheadedness. Contractions have essentially resolved since holding pitocin, plan to resume. General: Alert and oriented, in no acute distress FHR: Baseline 150bpm with moderate variability with accelerations, recent intermittent variable decelerations are currently absent [place]: Irritability without discrete contractions Cervix: 5/80/-2, head well applied. AROM performed with return of small volume clear to bloody show tinged fluid. Assessment/Plan: - Continue BP and BG monitoring per protocols - Resume pitocin at 6mu/min, titrate up 1-2u q30m pending FHR and toco data - Anticipate next exam in 4hours, sooner as clinically indicated - BT O negative - GNS negative Objective Vital Signs: Last Vital Signs Temp 98.4 F 06/10/24 02:22 Pulse 68 06/10/24 02:18 Resp 18 06/09/24 06:12 BP 112/53 L 06/10/24 02:18 Pulse Ox 98 06/10/24 01:55
--- NOTE | 2024-06-10 04:42 | PM.OBPNL ---
Subjective Time Seen by Provider: 04:44 Date Seen: 06/10/24 Narrative: Lauren Qureshi is a 29yo at 37w0d GA ongoing IOL for preeclampsia without severe features and GDMA2 on insulin. Induction progress has included cytotec x6, cook catheter, pitocin, AROM. At my last assessment, she was 5.5/80/-1 where FSE was placed. Lauren has had an intermittent category 2 FHR tracing since approximately 0400. There have been periods of intermittent late decelerations, intermittent variable decelerations and likely prolonged decelerations where monitoring was challenging due to repositioning. Most recently she had a prolonged deceleration at 0338, with subsequent recovery to the 160s bpm with moderate variability. Her pitocin has been turned off twice due to FHR changes. I expressed my concern to Lauren at time of my last exam regarding intolerance of labor, where I would recommend for persistent category 2 FHR tracing despite resuscitative efforts remote from delivery. Since that time, baby has demonstrated recurrent late decelerations with recovery to a baseline of 170bpm with periods of minimal and moderate variability. Accelerations are absent. Pitocin was turned off for a third time due to FHR changes. She is s/p IVF resuscitation and baby only tolerates the position she's in now. Altogether, I reviewed her labor course and my concern for intermittent category 2 FHR tracing throughout labor course. At present, she has a persistent category 2 FHR tracing for recurrent lates where pitocin has now been turned off x3. We have not seem significant improvement with repositioning or fluids. As such, I do recommend we proceed with primary delivery in the setting of persistent category 2 FHR tracing. Lauren expressed understanding and is agreeable to plan. We reviewed risks of surgery including bleeding, infection, damage to surrounding structures. Written consent obtained. All questions answered. - Plan to proceed to OR for primary . - Perioperative ancef and azithromycin ordered - BT O negative, active T/S on file - GBS negative - Peds to attend delivery for unscheduled for category 2 FHR Objective Vital Signs: Last Vital Signs Temp 98.4 F 06/10/24 03:47 Pulse 105 H 06/10/24 04:42 Resp 18 06/09/24 06:12 BP 92/61 06/10/24 04:42 Pulse Ox 100 06/10/24 03:56
[2024-06-10] MEDS: AZITHROMYCIN 500 MG in 0.9 % SODIUM CHLORIDE 250 ml 250 ML 255 MG IVPB (04:59)
--- NOTE | 2024-06-10 05:05 | PM.OBPRCCS ---
Procedure Time Seen by Provider: 06:30 Date of procedure: 06/10/24 Pre-op diagnosis: Persistent category 2 FHR tracing, preeclampsia without severe features, GDMA2 Post-op diagnosis: same Procedure Done: Global Will [facility] bill your pro fee for this procedure?: Yes Blood Loss Measurement Type: QBL (488) Bakri Used: No IV fluids (mL): 700 Urine Output (mL): 75 Urine Output Comment: Clear, yellow Surgeon: Billie Tillman MD Anesthesia Type: Epidural Findings: bradycardia Unremarkable uterus, fallopian tubes and ovaries Liveborn male fetus Procedure Name: Emergency delivery Procedure Description: Lauren is a 29yo at 37w1d GA who was ongoing IOL for preeclampsia without severe features and GDMA2. She had intermittent category 2 tracing, where primary was recommended for persistent category 2 FHR tracing remote from delivery at approximately 0445. OR team was notified and en route. At 0515 she had a deep, late deceleration to a gigi of 80bpm. Fetus briefly recovered to 130bpm, then a second deceleration occurred to a gigi of 70bpm. Decision was made to proceed with emergency . Patient was rapidly taken to the operating room with IV running. She arrived to the OR at 0524. She received cefazolin and azithromycin in preoperative prophylaxis. Existing epidural was bolused in the labor and delivery room, alan catheter was previously inserted. Immediately on arrival to OR the FHR was noted to be 60bpm, code white was called. Test was performed with adequate anesthesia noted from previous epidural bolus. A betadine splash was performed and she was draped in the usual sterile fashion. Anesthesia was again tested and found to be adequate. Surgery start time was 0528. A low-transverse skin incision was made with a scalpel and carried through to the underlying layer of fascia with the scalpel. The subcutaneous fat was dissected off the underlying fascia bluntly. The fascia was nicked in the midline and extended bluntly. The rectus muscles were noted to have slight separation in the midline, where peritoneum was readily identified and entered bluntly. Bovie was used to widen this opening laterally. Dioni O retractor was inserted and tightened down, providing excellent visualization of the lower uterine segment. The bladder reflection was found to be well below the planned site for hysterotomy. Low-transverse uterine incision was made with a scalpel. Incision was widened bluntly. The infant's head was grasped through the hysterotomy and elevated to the hysterotomy. The remainder of the body delivered without incident with the help of fundal pressure. Time of was 0530. No nuchal cord was noted. Cord was clamped and cut immediately. Infant was handed off to attending pediatrics CARPET INSTALLATION SPECIALIST and nurses. The placenta was delivered with gentle traction on the cord. The uterus was cleaned of all clots and debris with the dry lap pad. The hysterotomy was reapproximated with 0 Vicryl in a running, locked fashion. Uterine tone was suboptimal initially, where a dose of IV TXA was given in addition to increasing the rate of pitocin. Second layer of the same suture was used in imbricating fashion to obtain hemostasis. Excellent uterine tone and hemostasis was noted. The adnexa were examined and noted to be normal in appearance. The cul-de-sac and gutters were cleansed with dampened laparotomy sponge, removing any further clots and debris. The Dioni O retractor was removed. The hysterotomy was reexamined and found to be hemostatic. The rectus muscles were examined and found to be hemostatic. The fascia was reapproximated with 0 Vicryl in a running fashion. Subcutaneous fat was irrigated and Bovie used on oozing vessels. The subcutaneous fat was reapproximated with 2 0 vicryl suture in running fashion. The skin was closed with a subcuticular stitch of 3-0 monocryl. Silver dressing was applied. Patient tolerated procedure well was taken to recovery area in stable condition. Surgical debrief was completed. details: - Liveborn male fetus - weight: TBD - APGARs were 1, 3, 3 and 4 at 1, 5, 10 and 15 minutes respectively - required CPAP in the OR, now ongoing IV placement with CARPET INSTALLATION SPECIALIST. - Cord gases were obtained: ABG notable for mixed acidosis, pH 7.04, pCO2 80, base excess -10. Repeat ABG at 1 hour of life demonstrates pH of 7.31, pCO2 of 39, HCO3 of 20 and base excess of -5.9.
[2024-06-10 05:09] LABS: Hemoglobin* 10.5 gm/dL (12.0-16.0)
[2024-06-10] MEDS: CEFAZOLIN 2 GM INJ IVP (05:32)
--- NOTE | 2024-06-10 05:58 | CRLHL7_ITS ---
For Patients: As a result of the Cures Act, medical imaging exams and procedure reports are released immediately into your electronic medical record. You may view this report before your referring provider. If you have questions, please contact your health care provider. Indication: Sponge count post section. Technique: Abdomen 1 views. Comparison: None. Findings/Impression: Unremarkable single view of the abdomen. No sign of retained foreign body. Dictated by Chalo Ramos MD @ 06/10/2024 6:47:34 AM (Electronically Signed)
[2024-06-10] MEDS: KETOROLAC 30 MG/ML inj IVP ×3 (06:24→18:01)
--- NOTE | 2024-06-10 06:58 | P.NB_ITS ---
Nerve Block Nerve Block Time Seen by Provider: 06:35 Date Seen: 06/10/24 Type of block requested by surgeon for post-operative analgesia: TAP Side: bilateral Time out performed: Yes Verification of patient name: Yes Verification of date of : Yes Site marking: site marked Name of person performing procedure: Bernard Mclain Continuous monitoring Was continuous monitoring of O2 sat, B/P, accounts receivable assistant, recorded every 15 minutes?: Yes Procedure Checklist: sterile prep, needles and gloves Ultrasound guided. Images saved: Yes Medications given in 5ml increments after negative aspiration: Marcaine %: 0.25 mL: 30 Needle gauge: 20 and Exparel mL: 10 Needle gauge: 20 Patient tolerated procedure well: Yes Additional comments: Injected in 5 mL increments after negative aspiration Block Charges Block Charge (with Pro Fee): TAP Bilateral Use of Ultrasound Machine for Block: Yes- US Guidance/pain block
--- NOTE | 2024-06-10 06:59 | P.ANES_ITS ---
Anesthesia Charges Start Date/Time Anesthesia Start Date: 06/10/24 Anesthesia Start Time: 05:24 Stop Date/Time Anesthesia Stop Date: 06/10/24 Anesthesia Stop Time: 06:52 Summary Emergency: LABORATORY EQUIPMENT CLEANER
[2024-06-10] MEDS: diphenhydrAMINE 50 MG/ML inj 12.5 MG IVP (16:45)
[2024-06-10 20:15] LABS: Rapid Plasma Reagin (RPR) Non Reactive (Non Reactive)
[2024-06-10] MEDS: ACETAMINOPHEN 500 MG TABLET 1000 MG PO (20:49)
[2024-06-11] VITALS (9 sets, daily range): BP systolic 119–130; BP diastolic 77–83; PULSE 75–91; RESP 16–18; TEMP 36.3–36.6; O2SAT 98–99
[2024-06-11] MEDS: KETOROLAC 30 MG/ML inj IVP ×2 (00:42→06:05)
[2024-06-11 05:58] LABS: Hemoglobin* 10.6 gm/dL (12.0-16.0)
[2024-06-11 06:31] LABS: Glucose Fasting 84 mg/dl (70-95)
[2024-06-11 08:22] LABS: Glucose 2 Hour 143 mg/dl (70-155)
--- NOTE | 2024-06-11 10:24 | PM.OBPNVD1 ---
OB - PN:Subj Subjective Time Seen by Provider: 09:30 Date Seen: 06/11/24 Patient comments OB post-: pain well controlled, tolerating diet and flatus present status: transferred feeding status: expressed and storing Narrative: Patient feels well. Ambulating. Excellent pain control. Pumping colostrum. Passed 2-h GTT this morning. Would like to be discharged, if possible, so that she can be with her infant at [facility]. He is reportedly doing well, off CPAP last evening. OB - PN: Obj Exam Physical Exam: Vital signs: Temp Pulse Resp BP Pulse Ox O2 Del Method 97.9 F 91 18 119/78 98 Room Air 06/11/24 08:15 06/11/24 08:15 06/11/24 08:15 06/11/24 08:15 06/11/24 04:42 06/11/24 08:15 Constitutional: Constitutional: no acute distress Routine Neck Exam: Neck: Present normal inspection Routine Respiratory Exam: Respiratory: Present CTA bilaterally; Absent respiratory distress Routine Cardiovascular Exam: Cardiovascular: Present RRR; Absent murmur Routine Abdominal Exam: Abdominal: Present soft; Absent tenderness Fundus: Present firm Routine Extremities Exam: Extremities: Present normal inspection and pedal edema; Absent calf tenderness Routine Neurological Exam: Neurological: Present alert and oriented X3 Routine Psychiatric Exam: Psychiatric: Present normal affect Wound Management: Method: suture Examination: Present clean, dry and intact; Absent erythematous Comments: Pfannenstiel incision Urinary Catheter Management: Urethral: Cath placed during this visit: yes, but has since been removed by the nurse Reason for continuing: decision to DC catheter Removal date: 06/10/24 Removal time: 12:30 OB - PN: Obj Data Labs Labs: Laboratory Results - last 24 hr 06/08/24 06/10/24 06/11/24 17:33 05:48 05:48 Hgb 10.6 L Glucose Tolerance RPR Screen Non Reactive Screen Negative OB - PN: A/P Delivery Assessment and Plan (1) Pre-eclampsia during in third trimester, antepartum: Problem details: Normal BP Status: Acute (2) S/P section: Problem details: Emergent for bradycardia Status: Acute (3) Gestational diabetes: Status: Resolved Plan day: 1 Plan: discharge home
--- NOTE | 2024-06-11 10:29 | P.DS_ITS ---
DS: Providers Provider Time Seen by Provider: 09:30 Date Seen: 06/11/24 Date of admission: 06/08/24 16:06 Primary care physician: Not a Local Provider Admitting Clinician: Romy Drew MD Attending Physician on discharge: Savita Madera MD Date of Discharge: 06/11/24 DS: Diagnosis Discharge Diagnosis (1) S/P section: Status: Acute Problem details: Emergent for bradycardia (2) Pre-eclampsia during in third trimester, antepartum: Status: Acute Problem details: Normal BP (3) GDM, class A2: Status: Acute Exam Const: Vital Signs, click to edit/add: Vital Signs - 24 hr 06/10/24 11:00 06/10/24 12:00 06/10/24 12:00 Temperature 98.0 F Pulse Rate [Pulse Oximeter] 76 Respiratory Rate 16 16 16 Blood Pressure [Ri ght Arm] 132/85 Pulse Oximetry 99 Oxygen Delivery Me thod Room Air 06/10/24 16:30 06/10/24 18:00 06/10/24 19:20 Temperature 97.8 F Pulse Rate [Pulse Oximeter] 78 Respiratory Rate 15 15 16 Blood Pressure [Ri ght Arm] 122/80 Pulse Oximetry 97 Oxygen Delivery Me thod Room Air 06/10/24 20:44 06/10/24 21:20 06/10/24 22:20 Temperature 97.5 F L Pulse Rate [Pulse Oximeter] 75 Respiratory Rate 16 18 16 Blood Pressure [Ri ght Arm] 123/82 Pulse Oximetry 97 Oxygen Delivery Me thod Room Air 06/10/24 23:20 06/11/24 00:20 06/11/24 00:51 Temperature 97.4 F L Pulse Rate [Pulse Oximeter] 75 Respiratory Rate 18 18 16 Blood Pressure [Ri ght Arm] 130/77 Pulse Oximetry 99 Oxygen Delivery Me thod Room Air 06/11/24 01:20 06/11/24 02:20 06/11/24 03:20 Temperature Pulse Rate [Pulse Oximeter] Respiratory Rate 16 16 18 Blood Pressure [Ri ght Arm] Pulse Oximetry Oxygen Delivery Me thod 06/11/24 04:20 06/11/24 04:42 06/11/24 05:20 Temperature 97.5 F L Pulse Rate [Pulse Oximeter] 76 Respiratory Rate 18 18 18 Blood Pressure [Ri t Arm] 126/83 Pulse Oximetry 98 Oxygen Delivery Me thod Room Air 06/11/24 08:15 Temperature 97.9 F Pulse Rate [Pulse Oximeter] 91 Respiratory Rate 18 Blood Pressure [Ri t Arm] 119/78 Pulse Oximetry Oxygen Delivery Me thod Room Air Documenting provider has reviewed patient's vital signs: yes Common normals: no apparent distress, oriented x3, healthy appearing and alert General appearance: cooperative HENMT: Common normals: normocephalic Head and scalp: normocephalic Neck & C-Spine: Common normals: full ROM Resp: Common normals: normal respiratory effort and clear to auscultation bilaterally Auscultation: clear to auscultation bilaterally Cardio: Common normals: regular rate and regular rhythm Rate: regular rate Rhythm: regular rhythm GI: Common normals: soft to palpation and non-tender Inspection: normal to inspection and incision (Silver Mepilex dressing present); no abdominal distension Palpation: soft Extremity: Common normals: normal to inspection General: edema Neuro: Common normals: oriented x3 Sensorium/orientation: alert Gait (neuro): normal gait Psych: Common normals: mental status grossly normal and affect normal OB - DS: Summary Hospital Course Hospital Course: The patient is a 29 year old G 1 now P 1001 that was admitted to the [facility] on 06/08/24 for induction of labor secondary to pre-eclampsia without severe features and GDMA2. She had an uncomplicated emergent low transsverse delivery. She delivered a viable male infant who was subsequently transferred to [facility]. She is breast pumping. the patient has done well. Time spent discussing smoking cessation with patient: more than 10 minutes Peripartum Data delivery method: Primary C/S; Labored Procedures: Procedures Operation Date: 06/10/24 05:30 Actual Procedure Side Surgeon p Section Ce Tillman MD complications: none [place] Infant Gender: Male Time Spent with Patient Time attestation: Total time spent providing and/or coordinating discharge services: Time spent: Greater than 30 minutes Discharge Plan Discharge Disposition: Home, Self-Care Date of Admission: 06/08/24 16:06 Attending Provider on Discharge: Savita Madera Primary Care Provider: Provider,Not a Local Condition: Stable Anticipated Discharge Date/Time: 06/11/24 10:33 Discharge Medications: New docusate sodium 100 mg Capsule 100 mg PO DAILY Qty: 30 0RF ibuprofen 600 mg Tablet 600 mg PO Q6H PRN (Reason: Pain) Qty: 30 0RF oxycodone 5 mg Tablet 5 - 10 mg PO Q6H PRN (Reason: Pain) Qty: 10 0RF Continued cholecalciferol (vitamin D3) 125 mcg (5,000 unit) capsule 125 mcg PO QDAY albuterol 90 mcg/actuation aerosol 2 spray inhalation BID-QID PRN Hold Instructions: Doctor's Order Rx Instructions: 1 - 2 sprays inhaled DIRECTED PRN; DHA 200 mg capsule 1 mg PO aspirin [Cal Low Dose Aspirin] 81 mg tablet,delayed release (DR/EC) 81 mg PO QDAY Discontinued Humulin N NPH U-100 Insulin 100 unit/mL suspension 18 unit subcut .hs No Action (DME) Blood Glucose Meter Misc See Rx Instructions .Route Qty: 1 0RF Rx Instructions: As directed, use four times daily to monitor blood glucose values (DME) lancets [Accu-Chek Softclix Lancets] Misc See Rx Instructions .Route Qty: 100 3RF Rx Instructions: As directed, four times daily to measure blood glucose values (DME) Blood Glucose Test Strip See Rx Instructions .Route Qty: 100 3RF Rx Instructions: As directed, four times daily to measure blood glucose values (DME) BD Insulin Syringe (half unit) 0.3 mL 31 gauge x 5/16 syringe See Rx Instructions .Route Qty: 100 3RF Rx Instructions: As directed Discharge Orders: Discharge Order (Routine); Ordered 06/11/24 Ordered By: Savita Madera Patient Education: OB High Blood Pressure DC, OB Over the Counter Medication Information, OB /Breast Feeding Additional Instructions: Discharge instructions were reviewed with the patient including signs and symptoms of infection and home going medications Lifting Restrictions: 20 pounds for 6 weeks No not submerge incision under water X 2 weeks? Nothing vaginally for 6 weeks: no tampons or intercourse Do not drive while taking narcotic pain medication(s) Off Work or School for 8 weeks Symptoms to report to doctor: * Bleeding that saturates more than one pad per hour * Passing clots larger than the size of a golf ball * Pain not relieved by prescribed medication * Fever above 100.4 degrees Fahrenheit * A foul vaginal odor * Difficulty in emotions, mood, and functions * Thoughts of hurting yourself and/or * Painful, reddened area in your breast * Any drainage, redness, or tenderness in your IV/epidural site * Severe headache that doesn't improve after taking medications * Changes in vision, including temporary loss of vision, blurred vision, and/or light sensitivity * Upper abdominal pain (usually under ribs on the right side) * Decrease in urination or painful, frequent urinating * Chest pain * Shortness of breath * Tenderness or pain with redness and/swelling in the calf(s) of your leg [facility] for a BP check?in 3-4 days. Call with BP greater than or equal to 160/110 [facility] in 7-8 days for silver dressing removal. Optional 2-week visit: incision check, discuss infant feeding concerns, review control options and screen for anxiety/depression. 6-week visit for an annual exam. consultation services are available to all mothers and babies for the first year after delivery.? To make an appointment, please call [phone]. Activity Level: Activity as Tolerated Discharge Diet: Regular Follow Up Appointments: Provider,Not a Local [Primary Care Provider] - Forms: [employer] Info Instructions
[2024-06-11] MEDS: IBUPROFEN 600 MG TABLET PO (11:02)
== END 2024-06-11 11:08 | disposition home or self-care (01) | DRG 540 ==
PROVIDERS: Obstetrics & Gynecology; Admitting Provider Obstetrics & Gynecology; Visit Provider Obstetrics & Gynecology
PROC: 10D00Z1 Extraction of Products of Conception, Low, Open Approach (ICD-10-PCS; CPT 59514; principal; 2024-06-10 05:15)
DX: O14.04 Mild to moderate pre-eclampsia, complicating childbirth (principal); O76 Abnormality in fetal heart rate and rhythm complicating labor and delivery; O24.424 Gestational diabetes mellitus in childbirth, insulin controlled; O26.893 Other specified pregnancy related conditions, third trimester; Z67.41 Type O blood, Rh negative; G89.18 Other acute postprocedural pain; J45.990 Exercise induced bronchospasm; O99.344 Other mental disorders complicating childbirth; F98.8 Other specified behavioral and emotional disorders with onset usually occurring in childhood and adolescence; Z3A.36 36 weeks gestation of pregnancy; Z37.0 Single live birth
CPT/HCPCS: 01967; 01968; 36415; 59025; 59200; 64488; 74018; 76819; 76942; 82565; 82570; 82947; 82950; 82962; 84156; 84450; 84460; 84520; 85018; 85027; 85461; 86592; 86850; 86870; 86880; 86900; 86901; 88307; 99140; G0463; A9270; C1726; C9290; J0456; J0665; J0690; J1100; J1200; J1885; J2270; J2274; J2371; J2405; J2590; J2791; J2795; J3010; J7050; J7120

== ENCOUNTER 2024-06-11 22:48 | Observation (INO) | payer BC, SELFPAY ==
[2024-06-11 22:53] VITALS: BP 160/90; PULSE 82; RESP 16; TEMP 36.4; O2SAT 100; BMI 41.2
[2024-06-11 23:08] VITALS: BP 150/91; PULSE 78; RESP 16; O2SAT 99
[2024-06-11 23:36] VITALS: BP 146/84; PULSE 97; RESP 16; O2SAT 99
[2024-06-11] MEDS: NIFEdipine 30 MG TAB.ER.24 PO (23:46)
[2024-06-11 23:51] LABS: Basophils Percent Auto 0.3 % (0.0-3.0); Eosinophils Percent Auto 1.8 % (0.0-7.0); Hematocrit 33.6 % (33.0-51.0); Hemoglobin* 10.8 gm/dL (12.0-16.0); Immature Granulocytes Pct Auto 0.3 %; Lymphocytes Percent Auto 13.7 % (20-44); Mean Corpuscular HGB Conc 32 gm/dL (32-36); Mean Corpuscular Hemoglobin 26 pg (26-34); Mean Corpuscular Volume 81 fL (80-100); Neutrophils Percent Auto 76.9 % (42.0-72.0); Platelet Count* 305 K/uL (140-440); RDW Coefficient of Variation % 13.3 % (11.5-15.5); Red Blood Count 4.16 m/uL (4.00-5.20); White Blood Count* 17.49 K/uL (4.50-11.00)
[2024-06-11 23:53] LABS: Slide Review Reflex No
--- OUTSIDE RECORDS SUMMARY | 2024-06-11 23:59 | XMS_ITS | Clinical Summary ---
Author Organization [facility] Address [place], [place] [address] Care Team Providers Care Service Correspondent Name Role Phone Barbara Doe Unavailable [phone] Unavailable [phone] Braxton Avery RN Unavailable Ce Hale RD Unavailable [phone] Pcp, No Primary Care Provider Unavailabl e [...] Loss. Verbal Agreement. 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 Inhaled Oxygen Concentration - - Weight 87.5 [...] 16 Negative Negative 09/10/2023 1:47 PM CDT [facility] LABORATORY TYPE 18 Negative Negative 09/10/2023 1:47 PM CDT [facility] TRAL LABORATORY OTHER HIGH RISK TYPES Negative Negative 09/10/2023 1:47 PM CDT [facility] TRA LABORATORY Other (Cervical) 09/08/2023 12:00 PM CDT 09/08/2023 5:35 PM CDT Narrative [facility] - 09/10/2023 1:47 PM CDT HPV types 16, 18, 31, 33, 35, 39, 45, 51, 52, 56, 58, 59, 66 and 68 DNA were undetectable or below the pre-set threshold. Methodology: Jay Owen 4800 HPV Test Delmy Kelly NP MICROBIOLOGY [facility] [address] [place] [address], from Last 3 Months or Most Recently Relevant to Health Maintenance Care Teams Service Correspondent Relationship Specialty Start Date End Date Pcp, No . PCP - General 05/20/23 Barbara Doe [employer]ATCH MIXER [address] [place] [address] Nurse Practitioner Clinical Nurse Specialist 01/07/21 Samara Mauricio, RD [address] [place] [address] Registered Dietitian Residential Solar Sales Consultant 01/07/21 Braxton Avery, RN [address] [place] [address] Registered Nurse Registered Nurse 01/07/[address] [address] Residential Solar Sales Consultant 10/27/22
[2024-06-12] VITALS (8 sets, daily range): BP systolic 104–140; BP diastolic 68–87; PULSE 70–85; RESP 12–18; TEMP 36.7–37.1; O2SAT 96–99
[2024-06-12 00:08] LABS: Chloride* 106 mmol/L (96-114)
[2024-06-12 00:09] LABS: Albumin* 3.2 g/dL (3.3-5.0); Potassium* 3.9 mmol/L (3.6-5.1); Sodium* 136 mmol/L (135-149)
--- NOTE | 2024-06-12 00:09 | ED.GENADULT ---
HPI - General Adult General Date Seen: 06/12/24 Chief complaint: Post OB/Post- Complication Stated complaint: BP issues Time Seen by Provider: 06/11/24 22:50 Source: patient and family Mode of arrival: ambulatory Limitations: no limitations History of Present Illness HPI narrative: Patient is a very nice 29-year-old female who just had a , she presents here with the elevated blood pressure in the 160 systolic range at home. She has a history of gestational diabetes, and a diagnosis of elevated blood pressure and preeclampsia. She notes a headache at home but tells me that she is under lot of stress as her babies in the in ICU. She is here today with her . She has noted a little bit of swelling over legs, she has noted no visual disturbances she denies any abdominal pain other than the pain that she has. She has no nausea no vomiting. She was sent home from the hospital yesterday, she was not requiring blood pressure medications at that time. This is her 1st . Related Data Home Medications ?Medication ?Instructions ?Recorded ?Confirmed albuterol 90 mcg/actuation aerosol 2 spray inhalation BID-QID PRN 03/30/23 06/08/24 inhaler docosahexaenoic acid 200 mg 1 mg PO 11/16/23 06/06/24 capsule ( DHA) cholecalciferol (vitamin D3) 125 125 mcg PO QDAY 12/14/23 06/08/24 mcg (5,000 unit) capsule aspirin 81 mg tablet,delayed 81 mg PO QDAY 01/12/24 06/08/24 release (Cal Low Dose Aspirin) Previous Rx's ?Medication ?Instructions ?Recorded Blood Glucose Meter #1 ea 04/12/24 blood sugar diagnostic (Blood #100 ea 04/12/24 Glucose Test strips) lancets (Accu-Chek Softclix #100 ea 04/12/24 Lancets) insulin syr/ndl U100 half ana 0.3 #100 ea 05/05/24 mL 31 gauge x 5/16 (BD Insulin Syringe Ultra-Fine (half unit)) docusate sodium 100 mg capsule 100 mg PO DAILY #30 caps 06/11/24 ibuprofen 600 mg tablet 600 mg PO Q6H PRN Pain #30 tabs 06/11/24 oxycodone 5 mg tablet 5 - 10 mg (1 - 2 x 5 mg) PO Q6H 06/11/24 PRN Pain #10 tabs Allergies Allergy/AdvReac Type Severity Reaction Status Date / Time No Known Drug Allergies Allergy Verified 06/06/24 09:44 Review of Systems Status of ROS: Reports: 10 or more systems reviewed and unremarkable except as noted in History and below [facility] Medical History 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 (ICD-10) Surgical History History of tympanoplasty ?Z98.890 - Other specified postprocedural states (ICD-10) History of tonsillectomy and adenoidectomy ?Z90.89 - Acquired absence of other organs (ICD-10) History of wisdom tooth extraction ?K08.409 - Partial loss of teeth, unspecified cause, unspecified class (ICD-10) History of cholecystectomy (04/12/17) ?Z90.49 - Acquired absence of other specified parts of digestive tract (ICD-10) Family History Mother High blood pressure Diabetes Stroke Obesity Father High blood pressure Diabetes High cholesterol Stroke Obesity Maternal Grandfather Lung cancer Maternal Grandmother Breast cancer Colon cancer 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 ? Education: bachelors ? 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 ? Partner: Jcarlos, , mechanical maintenance worker? ? Lives with: Jcarlos? ? Pets: dogs? ? Abuse: Denies past. Unable to assess current, partner present? ? Special Diet: Denies? ? Ok with a blood transfusion: yes? ? Culture or adventist beliefs: denies? RISK FACTORS? ? Exercise Times/wk: Walking, less so now. ? ? Depression/Anxiety: denies? ? Previous Treatments: NA Therapy:NA Seat Belt Use: Routinely ? Smoking: Denies past/present? ? Alcohol/day: Denies while ? ? Caffeine: minimal? ? Drug Use: Denies past/present? ? What is your current living situation?: I presently have a place to live Problems where you live: no known problems In the past 12 months, utilities in danger of being shut off: no In past 12 months, lack of transportation kept you from medical appts, meetings, work, or getting things needed for daily living: no In the past 12 mos, have been you worried that your food would run out before you had money to buy more?: never true In the past 12 mos, the food you bought just didn't last and you didn't have money to buy more?: never true Smoking Status: Former smoker Do you use any of these nicotine containing products: None Second hand tobacco smoke exposure: No How often do you have a drink containing alcohol: never AUDIT-C Alcohol total score: 0 Non-prescribed substance use: denies use How often does anyone, including family, friends and others, physically hurt you: never How often does anyone, including family, friends and others, insult or talk down to you: never How often does anyone, including family, friends and others, threaten you with harm: never How often does anyone, including family, friends and others, scream or curse at you: never Little interest or pleasure in doing things: not at all Feeling down, depressed, or hopeless: not at all service: No Exam Narrative: Exam Narrative: On examination here she is in no apparent distress I see her in room 7 she is alert oriented GCS is 15/15. Pupils are equal round reactive to light her fundi are crisp been normal. Neck is supple chest is clear bilaterally no wheezing crackles noted heart sounds are normal, abdomen is soft the uterus is below the umbilicus, she is not significantly tender in her right upper quadrant, she moves all extremities independently well she does not have a tremor, she is +3/4 reflexes bilaterally in upper lower extremities. Const: Vital Signs, click to edit/add: Vital Signs - 24 hr 06/11/24 22:53 06/11/24 23:08 Temperature 97.6 F Pulse Rate [Pulse Oximeter] 82 78 Respiratory Rate 16 16 Blood Pressure [Le ft Upper Arm] 160/90 H 150/91 H Pulse Oximetry 100 99 Oxygen Delivery Me thod Room Air Room Air Documenting provider has reviewed patient's vital signs: yes Course Vital Signs Vital signs: Initial Vital Signs Temperature 97.6 F 06/11/24 22:53 Temperature Source Temporal Artery Scan 06/11/24 22:53 Pulse Rate 82 06/11/24 22:53 Pulse Rhythm Regular 06/11/24 22:53 Respiratory Rate 16 06/11/24 22:53 Blood Pressure 160/90 H 06/11/24 22:53 Blood Pressure Mean 113 H 06/11/24 22:53 Blood Pressure Position Sitting 06/11/24 22:53 Pulse Oximetry 100 06/11/24 22:53 Oxygen Delivery Method Room Air 06/11/24 22:53 Vital Signs Temperature 97.6 F 06/11/24 22:53 Pulse Rate 82 06/11/24 22:53 Respiratory Rate 16 06/11/24 22:53 Blood Pressure 160/90 H 06/11/24 22:53 Pulse Oximetry 100 06/11/24 22:53 Oxygen Delivery Method Room Air 06/11/24 22:53 Temperature 97.6 F 06/11/24 22:53 Pulse Rate 78 06/11/24 23:08 Respiratory Rate 16 06/11/24 23:08 Blood Pressure 150/91 H 06/11/24 23:08 Pulse Oximetry 99 06/11/24 23:08 Oxygen Delivery Method Room Air 06/11/24 23:08 Medications Administered Medications: Generic Name Dose Route Start Last Admin Trade Name Freq PRN Reason Stop Dose Admin Nifedipine 30 mg 06/11/24 23:38 06/11/24 23:46 Nifedipine 30 Mg Tab.Er.24 PO 06/11/24 23:39 30 mg ONCE ONE Administration Medical Decision Making MDM Narrative Medical decision making narrative: The question is if she is developing worsening of her preeclampsia with her blood pressure elevation. Or is this just pre-existing elevation of her blood pressure, I spoke to and she recommended to have blood test, and she recommended admission to OB, she also recommended nifedipine, which she took here. She was very emotional and somewhat teary when I told her she need to stay in the hospital, she was very much trying to bargain for going home and getting recheck tomorrow. The end she decided to stay. Medical Records Medical records reviewed: Yes I reviewed the patient's medical records Lab Data Lab results reviewed: Yes I reviewed the patient's lab results Labs: Lab Results 06/11/24 Range/Units 23:46 WBC 17.49 H (4.50-11.00) K/uL RBC 4.16 (4.00-5.20) m/uL Hgb 10.8 L (12.0-16.0) gm/dL Hct 33.6 (33.0-51.0) % MCV 81 (80-100) fL MCH 26 (26-34) pg MCHC 32 (32-36) gm/dL RDW Coeff of Hussein 13.3 (11.5-15.5) % Plt Count 305 (140-440) K/uL Neut % (Auto) 76.9 H (42.0-72.0) % Lymph % (Auto) 13.7 L (20-44) % [place] % (Auto) 7.0 (0.0-11.0) % Eos % (Auto) 1.8 (0.0-7.0) % Baso % (Auto) 0.3 (0.0-3.0) % Neut # (Auto) 13.40 H (1.7-7.0) K/uL Lymph # (Auto) 2.40 (0.90-2.90) K/uL [place] # (Auto) 1.20 H (0.00-0.90) K/UL Eos # (Auto) 0.30 (0.00-0.50) K/uL Baso # (Auto) 0.10 (0.00-0.30) K/uL Abs Immat Gran (auto) 0.10 (0.00-0.30) K/uL Imm/Tot Granulo (auto) 0.3 % Total Bilirubin Cancelled Direct Bilirubin Cancelled AST Cancelled ALT Cancelled Alkaline Phosphatase Cancelled Total Protein Cancelled Albumin Cancelled Discharge Plan Discharge Clinical Impression: Pre-eclampsia, Elevated blood pressure reading, Headache Patient Disposition: Admitted As Observation Prescriptions: No Action cholecalciferol (vitamin D3) 125 mcg (5,000 unit) capsule 125 mcg PO QDAY albuterol 90 mcg/actuation aerosol 2 spray inhalation BID-QID PRN Hold Instructions: Doctor's Order Rx Instructions: 1 - 2 sprays inhaled DIRECTED PRN; DHA 200 mg capsule 1 mg PO aspirin [Cal Low Dose Aspirin] 81 mg tablet,delayed release (DR/EC) 81 mg PO QDAY docusate sodium 100 mg Capsule 100 mg PO DAILY Qty: 30 0RF ibuprofen 600 mg Tablet 600 mg PO Q6H PRN (Reason: Pain) Qty: 30 0RF oxycodone 5 mg Tablet 5 - 10 mg PO Q6H PRN (Reason: Pain) Qty: 10 0RF (DME) Blood Glucose Meter Misc See Rx Instructions .Route Qty: 1 0RF Rx Instructions: As directed, use four times daily to monitor blood glucose values (DME) lancets [Accu-Chek Softclix Lancets] Misc See Rx Instructions .Route Qty: 100 3RF Rx Instructions: As directed, four times daily to measure blood glucose values (DME) Blood Glucose Test Strip See Rx Instructions .Route Qty: 100 3RF Rx Instructions: As directed, four times daily to measure blood glucose values (DME) BD Insulin Syringe (half unit) 0.3 mL 31 gauge x 5/16 syringe See Rx Instructions .Route Qty: 100 3RF Rx Instructions: As directed Follow Up/Referrals: Provider,Not a Local [Primary Care Provider] -
[2024-06-12 00:11] LABS: Creatinine* 0.6 mg/dL (0.5-1.5)
[2024-06-12 00:12] LABS: Alanine Aminotransferase* 17 U/L (4-35); Alkaline Phosphatase* 73 U/L (40-150); Anion Gap 5 mEq/L (7-15); Aspartate Amino Transferase* 26 U/L (12-35); Bilirubin Direct* 0.3 mg/dL (0.0-0.5); Bilirubin Total* 0.3 mg/dL (0.1-1.5); Blood Urea Nitrogen* 9 mg/dL (5-24); Calcium* 8.8 mg/dL (8.4-10.6); Carbon Dioxide* 25 mmol/L (20-32); Est. Creatinine Clearance* 110.41; Estimated Glomerular Filt Rate 125 ml/min; Glucose* 123 mg/dL (60-115); Total Protein* 5.9 g/dL (6.0-8.3)
[2024-06-12] MEDS: IBUPROFEN 600 MG TABLET PO (01:12)
--- NOTE | 2024-06-12 06:48 | W.PM.LDBA ---
Subjective History of Present Illness Date Seen: 06/12/24 Narrative: Patient is being admitted to the Center for observation for increased blood pressure. She is a 29 year old who is PPD #2 following and emergent primary LTCS for indications. She was discharged yesterday on POD #1 so that she could go to be with her , who had been transferred following delivery to [facility]. Her had been complicated by pre-eclampsia without severe features and GDMA2. Her blood pressures had been normal following delivery, and she had been discharged without medications and with instructions to self monitor BP and report high values or worrisome symptoms. She presented to the Emergency Department in the late evening yesterday complaining of high blood pressure readings to 160 systolic. She admitted to a mild headache, but noted considerable stress from her being in the NICU. She denied visual changes, RUQ pain, worsening swelling, nausea or vomiting. In the ED, her initial BP was 160/90. Repeat BP 15 minutes later was 150/91, and then 140s/80s. She was brought to the Center for observation/extended BP monitoring. Labs were obtained: platelets 308, Cr 0.6, ALT 17, AST 26. She was treated with a single dose of nifedipine ER 30 mg. Specific Issues/Plans Partner: Jcarlos [id number]: neg, male gender H&P by CGM on 06/06/24 # GDM A2- 18 units of NPH at nightime. - Seeing a shredded filler cutter operator on 04/18 - 05/04/2024: Diabetes education and initiation of insulin. surveillance, twice weekly. Order form completed Greater than 50% fastings elevated, normal post prandials. 12 units NPH at at bedtime -05/12/24: No improvement in fasting glucose levels. Increased to 14 units NPH at HS. -05/19/24: Fastings still mildly elevated. Increased to 16 u NPH at HS. -05/24/24: Increased to 18u NPH QHS. -06/01/24: IOL scheduling form sent out for 06/23/24 at 39 weeks #Elevated BP at 36 4/7 weeks -Sent to L&D for further monitoring # BMI 38. -aspirin at 12 weeks, started -Recommend growth in third trimester and consider weekly testing after 36 weeks # Hx of asthma, denies recent inhaler use # RH negative 28 wk Rhogam: 04-04-24 # Possible parvovirus exposure. Positive IgG, Negative IgM. Imaging: Growth US at 32 weeks: EFW 4 lb 9 oz (81%), AC 90%, SDP 5.6 cm, vertex Growth at 36 weeks 05/21/24:Single intrauterine gestation in a vertex presentation. Estimated weight is 2916 grams which corresponds to the 68th percentile for gestational age. COVID: Flu: TDAP:04/17/24 OB - Problem Based A/P Additional Plan (1) Elevated blood pressure reading: Status: Acute (2) Pre-eclampsia: Status: Acute Plan BP has been stable overnight, 104-117/68-81. Will likely hold am dose of nifedipine ER. Continue BP monitoring this am, re-evaluate for discharge later today. OB Exam Physical Exam Vital signs: Temp Pulse Resp BP Pulse Ox O2 Del Method 98.7 F 84 16 111/69 97 Room Air 06/12/24 04:06 06/12/24 04:06 06/12/24 04:06 06/12/24 04:06 06/12/24 04:06 06/12/24 04:06 Narrative: General appearance: Alert, cooperative, no acute distress Pulm: CTA bilaterally CV: RRR Abdominal: soft, nontender, no erythema, silver Mepilex dressing over incision Extremities: 1-2+ edema, unchanged from yesterday Detailed Labor and Delivery Exam Patient Gravid: No
[2024-06-12] MEDS: ACETAMINOPHEN 500 MG TABLET 1000 MG PO (07:52)
--- NOTE | 2024-06-12 08:13 | PM.OBPNVD1 ---
OB - PN:Subj Subjective Time Seen by Provider: 08:13 Date Seen: 06/12/24 Narrative: Lauren was readmitted to the hospital yesterday after being discharged early in the morning to go to the NICU to be with her baby at [facility]. She returned to [facility] approximately 10:00 p.m. last night with a headache and elevated blood pressures but not in the severe range. She received a dose of nifedipine ER 30 mg in her blood pressures have been significantly improved since then. I want to monitor her blood pressure for at least another 8 hours before allowing her to be discharged. She states her headache has completely resolved. She was able to get some sleep last night. She is pumping and giving colostrum and the NICU a supplementing. She otherwise is tolerating a regular diet, ambulating without difficulty, urinating with adequate output and passing flatus. She underwent an emergency in early hours of 06/10/2024 for nonreassuring heart rate tracing. OB - PN: Obj Exam Physical Exam: Vital signs: Temp Pulse Resp BP Pulse Ox O2 Del Method 98.7 F 84 16 111/69 97 Room Air 06/12/24 04:06 06/12/24 04:06 06/12/24 04:06 06/12/24 04:06 06/12/24 04:06 06/12/24 04:06 Narrative: General: Pleasant, well woman in no acute distress. Vital signs: Included in her electronic record. Heart: Regular rate and rhythm without gallop, rub or murmur. Chest: Clear to auscultation bilaterally. Abdomen: Soft, nontender, nondistended with normal bowel sounds throughout. Incision: Silver-containing dressing intact. Extremities: 1-2 +bilateral lower extremity edema to the ankle. 2+/2 DTRs at the patella no clonus. OB - PN: Obj Data Labs Labs: Laboratory Results - last 24 hr 06/11/24 06/11/24 06/11/24 23:46 23:46 23:46 WBC 17.49 H RBC 4.16 Hgb 10.8 L Hct 33.6 MCV 81 MCH 26 MCHC 32 RDW Coeff of Hussein 13.3 Plt Count 305 Neut % (Auto) 76.9 H Lymph % (Auto) 13.7 L [place] % (Auto) 7.0 Eos % (Auto) 1.8 Baso % (Auto) 0.3 Neut # (Auto) 13.40 H Lymph # (Auto) 2.40 [place] # (Auto) 1.20 H Eos # (Auto) 0.30 Baso # (Auto) 0.10 Abs Immat Gran (auto) 0.10 Imm/Tot Granulo (auto) 0.3 Sodium 136 Potassium 3.9 Chloride 106 Carbon Dioxide 25 Anion Gap 5 L BUN 9 Creatinine 0.6 Estimated Creat Clear 110.41 Estimated GFR 125 Glucose 123 H Calcium 8.8 Total Bilirubin 0.3 Cancelled Direct Bilirubin 0.3 Cancelled AST 26 ALT Alkaline Phosphatase Total Protein Albumin 06/11/24 06/11/24 06/11/24 23:46 23:46 23:46 WBC RBC Hgb Hct MCV MCH MCHC RDW Coeff of Hussein Plt Count Neut % (Auto) Lymph % (Auto) [place] % (Auto) Eos % (Auto) Baso % (Auto) Neut # (Auto) Lymph # (Auto) [place] # (Auto) Eos # (Auto) Baso # (Auto) Abs Immat Gran (auto) Imm/Tot Granulo (auto) Sodium Potassium Chloride Carbon Dioxide Anion Gap BUN Creatinine Estimated Creat Clear Estimated GFR Glucose Calcium Total Bilirubin Direct Bilirubin AST Cancelled ALT 17 Cancelled Alkaline Phosphatase 73 Cancelled Total Protein 5.9 L Albumin 06/11/24 06/11/24 23:46 23:46 WBC RBC Hgb Hct MCV MCH MCHC RDW Coeff of Hussein Plt Count Neut % (Auto) Lymph % (Auto) [place] % (Auto) Eos % (Auto) Baso % (Auto) Neut # (Auto) Lymph # (Auto) [place] # (Auto) Eos # (Auto) Baso # (Auto) Abs Immat Gran (auto) Imm/Tot Granulo (auto) Sodium Potassium Chloride Carbon Dioxide Anion Gap BUN Creatinine Estimated Creat Clear Estimated GFR Glucose Calcium Total Bilirubin Direct Bilirubin AST ALT Alkaline Phosphatase Total Protein Cancelled Albumin 3.2 L Cancelled OB - PN: A/P Delivery Assessment and Plan (1) Elevated blood pressure reading: Status: Acute (2) Pre-eclampsia: Status: Acute Plan 1. Continue to monitor blood pressure closely. 2. Preeclampsia labs on admission were normal did not recheck but will recheck if she has a blood pressure spike for develops symptoms of severe preeclampsia. 3. Hopefully discharge later today. 4. Continue nifedipine ER 30 mg daily
[2024-06-12] MEDS: DOCUSATE SODIUM 100 MG CAPSULE PO (09:06)
[2024-06-12] MEDS: SENNOSIDES 1 TAB TABLET PO (09:06)
--- NOTE | 2024-06-12 13:42 | P.DS_ITS ---
DS: Providers Provider Time Seen by Provider: 13:42 Date Seen: 06/12/24 Date of admission: 06/12/24 00:23 Primary care physician: Not a Local Provider Admitting Clinician: Savita Madera MD Attending Physician on discharge: Romy Drew MD Date of Discharge: 06/12/24 DS: Diagnosis Discharge Diagnosis (1) Pre-eclampsia: Status: Acute Exam Narrative: Exam Narrative: GENERAL APPEARANCE: Pleasant, , well-groomed woman in no acute distress. VITAL SIGNS: See her electronic medical record LUNGS: Clear to auscultation bilaterally without wheezes, rales or rhonchi. HEART: Regular rate and rhythm with normal S1 and S2. No gallop, rub or murmur. ABDOMEN: Gravid. Soft, nontender, nondistended, with normal bowels sounds throughout. FUNDUS: Firm at 2 cm below the umbilicus in the midline INCISION: Dressing clean, dry and intact EXTREMITIES: No cyanosis, clubbing, or varicosities. 1-2+ bilateral lower extremity edema to the ankle. NEUROLOGIC: Normal gait and balance. Normal deep tendon reflexes at bilateral patella 2+/2, equal without clonus. PSYCHIATRIC: alert and oriented x3. Normal speech pattern, eye contact and affect. SKIN: Warm, dry, and well perfused. Good turgor. No lesions, nodules or rashes. Const: Vital Signs, click to edit/add: Vital Signs - 24 hr 06/11/24 22:53 06/11/24 23:08 06/11/24 23:36 Temperature 97.6 F Pulse Rate [Pulse Oximeter] 82 78 97 Respiratory Rate 16 16 16 Blood Pressure [Le ft Arm] Blood Pressure [Le ft Upper Arm] 160/90 H 150/91 H 146/84 H Pulse Oximetry 100 99 99 Oxygen Delivery Me thod Room Air Room Air Room Air 06/12/24 00:12 06/12/24 00:47 06/12/24 01:04 Temperature 98.3 F 98.2 F Pulse Rate [Pulse Oximeter] 85 80 80 Respiratory Rate 18 16 16 Blood Pressure [Le ft Arm] 135/87 117/81 Blood Pressure [Le ft Upper Arm] 140/84 H Pulse Oximetry 99 97 97 Oxygen Delivery Me thod Room Air Room Air Room Air 06/12/24 02:03 06/12/24 03:04 06/12/24 04:06 Temperature 98.7 F Pulse Rate [Pulse Oximeter] 70 83 84 Respiratory Rate 12 16 16 Blood Pressure [Le ft Arm] 110/73 104/68 111/69 Blood Pressure [Le ft Upper Arm] Pulse Oximetry 97 97 97 Oxygen Delivery Me thod Room Air Room Air Room Air 06/12/24 08:02 06/12/24 11:58 Temperature 98.4 F 98.1 F Pulse Rate [Pulse Oximeter] 76 84 Respiratory Rate 16 16 Blood Pressure [Le ft Arm] 134/76 127/84 Blood Pressure [Le ft Upper Arm] Pulse Oximetry 96 97 Oxygen Delivery Me thod Room Air Room Air OB - DS: Summary Hospital Course Hospital Course: Lauren is a 29 year old G 1 P 1 who is readmitted to the Center 2 days postop from an emergency a 4 nonreassuring heart rate tracing. She had an uncomplicated delivery. She delivered a viable male who was transferred to [facility]. She is planning on and has been pumping to express breast milk. She was readmitted last night with a blood pressure exacerbation. She received 1 dose of nifedipine ER 30 mg at approximately midnight last night and her blood pressures have all been under 140/90 since then. She denies headache, visual changes, right upper quadrant pain. She has continued swelling that is unchanged from previous. She states that she feels much better than she did last night. She would like to be discharged so that she can go see her baby in the ICU. Time Spent with Patient Time attestation: Total time spent providing and/or coordinating discharge services: Time spent: Less than 30 minutes Discharge Plan Discharge Disposition: Home, Self-Care Date of Admission: 06/12/24 00:23 Attending Provider on Discharge: Romy Drew Primary Care Provider: Provider,Not a Local Condition: Improved Anticipated Discharge Date/Time: 06/12/24 14:30 Discharge Medications: New nifedipine 30 mg Tablet Extended Release 24hr 30 mg PO DAILY Qty: 60 0RF Continued cholecalciferol (vitamin D3) 125 mcg (5,000 unit) capsule 125 mcg PO QDAY albuterol 90 mcg/actuation aerosol 2 spray inhalation BID-QID PRN Hold Instructions: Doctor's Order Rx Instructions: 1 - 2 sprays inhaled DIRECTED PRN; DHA 200 mg capsule 1 mg PO docusate sodium 100 mg Capsule 100 mg PO DAILY Qty: 30 0RF ibuprofen 600 mg Tablet 600 mg PO Q6H PRN (Reason: Pain) Qty: 30 0RF oxycodone 5 mg Tablet 5 - 10 mg PO Q6H PRN (Reason: Pain) Qty: 10 0RF Discontinued aspirin [Cal Low Dose Aspirin] 81 mg tablet,delayed release (DR/EC) 81 mg PO QDAY (DME) Blood Glucose Meter Misc See Rx Instructions .Route Qty: 1 0RF Rx Instructions: As directed, use four times daily to monitor blood glucose values (DME) lancets [Accu-Chek Softclix Lancets] Misc See Rx Instructions .Route Qty: 100 3RF Rx Instructions: As directed, four times daily to measure blood glucose values (DME) Blood Glucose Test Strip See Rx Instructions .Route Qty: 100 3RF Rx Instructions: As directed, four times daily to measure blood glucose values (DME) BD Insulin Syringe (half unit) 0.3 mL 31 gauge x 5/16 syringe See Rx Instructions .Route Qty: 100 3RF Rx Instructions: As directed Discharge Orders: Discharge Order (Routine); Ordered 06/12/24 Ordered By: Romy Drew Patient Education: Preeclampsia During (DC) Additional Instructions: Discharge instructions were reviewed with the patient including signs and symptoms of infection and home going medications Lifting Restrictions: 20 pounds for 6 weeks No not submerge incision under water X 2 weeks? Nothing vaginally for 6 weeks: no tampons or intercourse Do not drive while taking narcotic pain medication(s) Off Work or School for a minimum of 8 weeks Symptoms to report to doctor: * Bleeding that saturates more than one pad per hour * Passing clots larger than the size of a golf ball * Pain not relieved by prescribed medication * Fever above 100.4 degrees Fahrenheit * A foul vaginal odor * Difficulty in emotions, mood, and functions * Thoughts of hurting yourself and/or * Painful, reddened area in your breast * Any drainage, redness, or tenderness in your IV/epidural site * Severe headache that doesn't improve after taking medications * Changes in vision, including temporary loss of vision, blurred vision, and/or light sensitivity * Upper abdominal pain (usually under ribs on the right side) * Decrease in urination or painful, frequent urinating * Chest pain * Shortness of breath * Tenderness or pain with redness and/swelling in the calf(s) of your leg Follow [facility] for a BP check?06/15/2024 Call with BP greater than or equal to 160/110 or less than 90/60 Optional 2-week visit: incision check, discuss infant feeding concerns, review control options and screen for anxiety/depression. 6-week visit for an annual exam. consultation services are available to all mothers and babies for the first year after delivery.? To make an appointment, please call [phone]. Discharge Diet: Regular Follow Up Appointments: Provider,Not a Local [Primary Care Provider] - [facility] [Provider Group] Forms: [facility] Info Instructions
== END 2024-06-12 14:39 | disposition home or self-care (01) ==
LOC: ED 06-12 00:14 → OB 06-12 00:24
PROVIDERS: Admitting Provider Obstetrics & Gynecology; Emergency Provider Family Medicine; Visit Provider Obstetrics & Gynecology
DX: O14.95 Unspecified pre-eclampsia, complicating the puerperium (principal); R03.0 Elevated blood-pressure reading, without diagnosis of hypertension; R51.9 Headache, unspecified; R60.0 Localized edema; Z79.82 Long term (current) use of aspirin; Z79.4 Long term (current) use of insulin; Z98.891 History of uterine scar from previous surgery; Z86.32 Personal history of gestational diabetes; Z87.09 Personal history of other diseases of the respiratory system; Z87.891 Personal history of nicotine dependence; Z90.89 Acquired absence of other organs; Z94.9 Transplanted organ and tissue status, unspecified; Z98.890 Other specified postprocedural states
CPT/HCPCS: 36415; 80048; 80076; 85025; 99284; 99285; A9270; G0378

== ENCOUNTER 2024-06-13 06:05 | Emergency (ER) | payer BC, SELFPAY ==
[2024-06-13 06:13] VITALS: BP 142/99; PULSE 102; RESP 16; TEMP 36.4; O2SAT 97; BMI 39.5
--- NOTE | 2024-06-13 06:45 | ED.GENADULT ---
HPI - General Adult General Chief complaint: Post OB/Post- Complication Stated complaint: High BP Time Seen by Provider: 06/13/24 06:44 Source: patient and family Mode of arrival: ambulatory Limitations: no limitations History of Present Illness HPI narrative: 29-year-old primigravid female 4 days from an uncomplicated primary for distress. Patient had preeclampsia with no severe features, labs reviewed. process was complicated by readmission day after discharge for persistently elevated blood pressures yesterday. She was able to be discharged after about a half day of monitoring. She was discharged on nifedipine which did improve her blood pressures quite a bit. She has continued to take the medication as prescribed. She has been checking her blood pressures at home, initially she was 110 systolic after medication in the hospital. The patient had a blood pressure in the 160s at home this morning and was just feeling very anxious. She admits that a lot of this is because her baby is still in the NICU at [facility]. He is scheduled to be discharged today. She is worried about missing that appointment and trying to get her blood pressure down. She wonders if she would benefit from a medication for her anxiety. She admits that she is feeling overwhelmed but denies any feelings of intent of harming herself or the baby, denies any psychosis. She admits that she had some normal human anxiety in the past but has never been diagnosed with any mental health issues. She does not endorse any psychosis, hearing voices, persistent crying spells or inability to care for herself. She has never been treated with mental health medications in the past. She is looking forward to the baby coming home and gushes to the nurse about how her milk seems to be coming in and she is doing well with pumping thus far. She happily shows this pictures of her baby and seems to be having very appropriate responses to all questions and the overall experience. Reports adequate pain control, has good supportive family. Denies any fevers, significant breast pain, abdominal issues, drainage from her incision or heavy vaginal bleeding. Operative note, discharge summary and her observation note from yesterday are reviewed. After assessment, I also spoke with the Ob provider on-call who managed her care yesterday. Related Data Home Medications ?Medication ?Instructions ?Recorded ?Confirmed albuterol 90 mcg/actuation aerosol 2 spray inhalation BID-QID PRN 03/30/23 06/08/24 inhaler docosahexaenoic acid 200 mg 1 mg PO 11/16/23 06/06/24 capsule ( DHA) cholecalciferol (vitamin D3) 125 125 mcg PO QDAY 12/14/23 06/08/24 mcg (5,000 unit) capsule Previous Rx's ?Medication ?Instructions ?Recorded docusate sodium 100 mg capsule 100 mg PO DAILY #30 caps 06/11/24 ibuprofen 600 mg tablet 600 mg PO Q6H PRN Pain #30 tabs 06/11/24 oxycodone 5 mg tablet 5 - 10 mg (1 - 2 x 5 mg) PO Q6H 06/11/24 PRN Pain #10 tabs nifedipine 30 mg tablet,extended 30 mg PO DAILY #60 tabs 06/12/24 release 24 hr Allergies Allergy/AdvReac Type Severity Reaction Status Date / Time No Known Drug Allergies Allergy Verified 06/06/24 09:44 [facility] Medical History 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 (ICD-10) Surgical History History of tympanoplasty ?Z98.890 - Other specified postprocedural states (ICD-10) History of tonsillectomy and adenoidectomy ?Z90.89 - Acquired absence of other organs (ICD-10) History of wisdom tooth extraction ?K08.409 - Partial loss of teeth, unspecified cause, unspecified class (ICD-10) History of cholecystectomy (04/12/17) ?Z90.49 - Acquired absence of other specified parts of digestive tract (ICD-10) Family History Mother High blood pressure Diabetes Stroke Obesity Father High blood pressure Diabetes High cholesterol Stroke Obesity Maternal Grandfather Lung cancer Maternal Grandmother Breast cancer Colon cancer 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 ? Education: bachelors ? 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 ? Partner: Jcarlos, , mechanical engineer? ? Lives with: Jcarlos? ? Pets: dogs? ? Abuse: Denies past. Unable to assess current, partner present? ? Special Diet: Denies? ? Ok with a blood transfusion: yes? ? Culture or nondenominational beliefs: denies? RISK FACTORS? ? Exercise Times/wk: Walking, less so now. ? ? Depression/Anxiety: denies? ? Previous Treatments: NA Therapy:NA Seat Belt Use: Routinely ? Smoking: Denies past/present? ? Alcohol/day: Denies while ? ? Caffeine: minimal? ? Drug Use: Denies past/present? ? What is your current living situation?: I presently have a place to live Problems where you live: no known problems In the past 12 months, utilities in danger of being shut off: no In past 12 months, lack of transportation kept you from medical appts, meetings, work, or getting things needed for daily living: no In the past 12 mos, have been you worried that your food would run out before you had money to buy more?: never true In the past 12 mos, the food you bought just didn't last and you didn't have money to buy more?: never true Smoking Status: Former smoker Do you use any of these nicotine containing products: None Second hand tobacco smoke exposure: No How often do you have a drink containing alcohol: never AUDIT-C Alcohol total score: 0 Non-prescribed substance use: denies use How often does anyone, including family, friends and others, physically hurt you: never How often does anyone, including family, friends and others, insult or talk down to you: never How often does anyone, including family, friends and others, threaten you with harm: never How often does anyone, including family, friends and others, scream or curse at you: never Little interest or pleasure in doing things: not at all Feeling down, depressed, or hopeless: not at all service: No Exam Const: Vital Signs, click to edit/add: Vital Signs - 24 hr 06/13/24 06:13 06/13/24 07:09 Temperature 97.6 F Pulse Rate [Pulse Oximeter] 102 H 101 H Respiratory Rate 16 18 Blood Pressure [Le ft Upper Arm] 142/99 H 136/94 H Pulse Oximetry 97 Oxygen Delivery Me thod Room Air Documenting provider has reviewed patient's vital signs: yes Other: Mildly anxious but very appropriate. Makes good eye contact, gives appropriate answers. Family seems very appropriately supportive. HENMT: Common normals: normocephalic Head and scalp: normocephalic Mouth: oral and palatal mucosa normal Throat: posterior oropharynx normal Eye: Common normals: conjunctivae normal General eye: normal appearance of both eyes Conjunctiva: conjunctiva(e) normal Neck & C-Spine: Other: No JVD Resp: Common normals: normal respiratory effort, no use of accessory muscles and clear to auscultation bilaterally Effort & inspection: able to speak in complete sentences Auscultation: clear to auscultation bilaterally Cardio: Common normals: regular rate, regular rhythm, S1 normal heart sound, S2 normal heart sound and no murmurs Rate: regular rate Rhythm: regular rhythm Heart sounds: S1 normal and S2 normal GI: Common normals: Normal to inspection, nondistended, normoactive bowel sounds present Other: No CP jaundice surgical dressing, no surrounding redness around incision. The liver is not enlarged or tender. Fundus is firm about 3 cm below umbilicus, nontender. Extremity: Other: Trace bilateral edema, good capillary refill. Neuro: Motor exam: no movement abnormalities noted Psych: Attitude: engaged Activity/motor behavior: appropriate eye contact Thought content: normal thought content Insight: insight good Judgement: judgment good Skin: Common normals: no rashes or lesions noted General skin exam: no rashes or lesions noted Course Course ED Course: 29-year-old female with mild preeclampsia with uncontrolled blood pressures on initial dose of nifedipine. Spoke with Ob provider radiophone operator, recommends increasing nifedipine to twice daily, will give additional dose here in the ED and monitor. Recommends repeating typical preeclampsia labs. Will call provider back if any unexpectedly elevated. Otherwise, anticipate discharge on increase nifedipine and planned [facility] hours [facility]. Patient I also spent a good deal of time talking over her anxiety symptoms. He is exhibiting very normal adjustment disorder some of which is biologically driven after having a baby but especially in 1 where her did not and as she had anticipated and her baby was transferred to the NICU and they have been due to her needing to be hospitalized for the preeclampsia. Her response and reactions are absolutely within the scope of expected and she is coping very well. She was quite reassured to hear this. I did offer medication but stated that I do not think that this will actually help her and I think that her goals for the medication to downplay her grief over her current situation is not warranted. She took this perspective well. We did discuss psychosis, warning signs of truly worrisome behavior she and her will continue to monitor this closely. If not improving after a couple of days of being home with the baby, should re-evaluate. She seems to have a very good inner jena that can help her keep an eye on things and I see no reason why she should not greens picker her baby today. She will continue checking her blood pressure every few hours while awake and report back any persistent elevations to her OB team. Reevaluation(s) Time of Reevaluation #1: 07:43 Reevaluation #1: Most repeat blood pressure is 130s/90, none over 150 systolic, none over 100s diastolic. Reviewed findings and thoughts with patient. I still do not think an mood medication is necessary. Alarm symptoms were again reviewed. She will increase nifedipine as discussed, keep her follow-up in 48 hours. To continue checking her blood pressure at home she will call if she is persistently over 160 right away but if persistently over 140, call within 24 hours. Vital Signs Vital signs: Initial Vital Signs Temperature 97.6 F 06/13/24 06:13 Temperature Source Temporal Artery Scan 06/13/24 06:13 Pulse Rate 102 H 06/13/24 06:13 Respiratory Rate 16 06/13/24 06:13 Blood Pressure 142/99 H 06/13/24 06:13 Blood Pressure Mean 113 H 06/13/24 06:13 Blood Pressure Position Supine 06/13/24 06:13 Pulse Oximetry 97 06/13/24 06:13 Oxygen Delivery Method Room Air 06/13/24 06:13 Vital Signs Temperature 97.6 F 06/13/24 06:13 Pulse Rate 102 H 06/13/24 06:13 Respiratory Rate 16 06/13/24 06:13 Blood Pressure 142/99 H 06/13/24 06:13 Pulse Oximetry 97 06/13/24 06:13 Oxygen Delivery Method Room Air 06/13/24 06:13 Temperature 97.6 F 06/13/24 06:13 Pulse Rate 101 H 06/13/24 07:09 Respiratory Rate 18 06/13/24 07:09 Blood Pressure 136/94 H 06/13/24 07:09 Pulse Oximetry 97 08/06/24 06:13 Oxygen Delivery Method Room Air 06/13/24 06:13 Medications Administered Medications: Discontinued Medications Generic Name Dose Route Start Last Admin Trade Name Can PRN Reason Stop Dose Admin Nifedipine 30 mg 06/13/24 06:48 06/13/24 07:06 Nifedipine 30 Mg Tab.Er.24 PO 06/13/24 06:49 30 mg ONCE ONE Administration Medical Decision Making Lab Data Lab results reviewed: Yes I reviewed the patient's lab results Lab results narrative: All labs reassuring with no signs of severe preeclamptic features. Labs: Lab Results 06/13/24 Range/Units 07:00 WBC 14.28 H (4.50-11.00) K/uL RBC 4.55 (4.00-5.20) m/uL Hgb 11.5 L (12.0-16.0) gm/dL Hct 36.3 (33.0-51.0) % MCV 80 (80-100) fL MCH 25 L (26-34) pg MCHC 32 (32-36) gm/dL RDW Coeff of Hussein 13.1 (11.5-15.5) % Plt Count 369 (140-440) K/uL Neut % (Auto) 72.5 H (42.0-72.0) % Lymph % (Auto) 15.1 L (20-44) % [place] % (Auto) 6.9 (0.0-11.0) % Eos % (Auto) 4.5 (0.0-7.0) % Baso % (Auto) 0.6 (0.0-3.0) % Neut # (Auto) 10.40 H (1.7-7.0) K/uL Lymph # (Auto) 2.20 (0.90-2.90) K/uL [place] # (Auto) 1.00 H (0.00-0.90) K/UL Eos # (Auto) 0.60 H (0.00-0.50) K/uL Baso # (Auto) 0.10 (0.00-0.30) K/uL Abs Immat Gran (auto) 0.10 (0.00-0.30) K/uL Imm/Tot Granulo (auto) 0.4 % Sodium 135 (135-149) mmol/L Potassium 3.7 (3.6-5.1) mmol/L Chloride 106 (96-114) mmol/L Carbon Dioxide 23 (20-32) mmol/L Anion Gap 6 L (7-15) mEq/L BUN 6 (5-24) mg/dL Creatinine 0.5 (0.5-1.5) mg/dL Estimated Creat Clear 132.49 Estimated GFR 131 ml/min Glucose 99 (60-115) mg/dL Uric Acid 3.8 (2.2-8.4) mg/dL Calcium 8.7 (8.4-10.6) mg/dL Magnesium 2.0 (1.5-2.6) mg/dL Total Bilirubin 0.4 (0.1-1.5) mg/dL AST 28 (12-35) U/L ALT 21 (4-35) U/L Alkaline Phosphatase 74 (40-150) U/L Total Protein 6.5 (6.0-8.3) g/dL Albumin 3.5 (3.3-5.0) g/dL Discharge Plan Discharge Clinical Impression: Mild pre-eclampsia delivered Patient Disposition: Home w/ Parent or Adult Condition: Improved Instructions: Preeclampsia During (ED) Additional Instructions: As we discussed, preeclampsia can be a bit of a bumpy ride and sometimes needs adjustments in treatment over time. Your blood pressures are not in the terrifying range but I do think that some adjustment is in order. Your Ob provider is in agreement with this. For now, we will have you increase her nifedipine to twice daily. You are already given a dose here this morning, so your next dose will be tonight. Continue checking your blood pressures every 3 hours or so while you are awake. Unfortunately, blood pressures do fluctuate significantly throughout the day so you may have a couple that are elevated. We would like to keep them under 160, but under 140 would be ideal. If you get a high reading, try to rest for about a 1/2 hour and recheck. As long as her blood pressure comes down, continue your medications as prescribed but if they are remaining over 140 even with medications and especially if persistently over 160, please call. You certainly are showing very appropriate human response to all that you have been through in the past few days. This level of anxiety seems like it would be expected in your circumstances. There are medications available but as we discussed, I do not think that these are necessary at this time. I actually do not think they would be overly helpful to you either and may have unwanted side effects for you or the baby. I think that things will improve for you once the baby is home and you are able to get into more of a routine. Continue to keep a watch on your symptoms closely. If you start hearing voices, are unable to care for the baby, have persistent thoughts of harming yourself for the baby, have any severe symptoms, you should call or come back to the hospital. If your symptoms of anxiety are not improving within the next few days, medications should be reconsidered. Your Ob provider would like for you to keep your upcoming appointment for . Sometimes, we need to decrease the medication again after a couple of days. She will be in close communication with you regarding this. Activity Level: No strenuous activity Prescriptions: No Action cholecalciferol (vitamin D3) 125 mcg (5,000 unit) capsule 125 mcg PO QDAY albuterol 90 mcg/actuation aerosol 2 spray inhalation BID-QID PRN Hold Instructions: Doctor's Order Rx Instructions: 1 - 2 sprays inhaled DIRECTED PRN; DHA 200 mg capsule 1 mg PO docusate sodium 100 mg Capsule 100 mg PO DAILY Qty: 30 0RF ibuprofen 600 mg Tablet 600 mg PO Q6H PRN (Reason: Pain) Qty: 30 0RF oxycodone 5 mg Tablet 5 - 10 mg PO Q6H PRN (Reason: Pain) Qty: 10 0RF nifedipine 30 mg Tablet Extended Release 24hr 30 mg PO DAILY Qty: 60 0RF Follow Up/Referrals: Provider,Not a Local [Primary Care Provider] - Stand Alone Forms: [facility] Info Instructions
--- OUTSIDE RECORDS SUMMARY | 2024-06-13 06:57 | XMS_ITS | Clinical Summary ---
Author Organization [employer] [facility] Address [place], [place] [address] Care Team Providers Care Treatment Manager Name Role Phone Barbara Doe Unavailable [phone] Unavailable [phone] Braxton Avery RN Unavailable Ce Hale RD Unavailable [phone] Pcp, No Primary Care Provider Unavailabl e [...] Loss. Verbal Agreement. Pharmacy: [facility] [place] [phone] Obesity, Class I, BMI 30-34.9 04/23/2021 Vitamin [...] Date Resolved Date Viral warts, unspecified 06/29/200706/2013 Encounters Date Type Department Care Team Description 06/12/2024 Lab Requisition [facility] [phone] Ce Tillman MD from Last 3 Months Immunizations Name Administration Dates Next Due AMB [...] recorded on cert ificate 09/30/2021 1:23 PM CREDIT CLERK Gender Identity Not on file Sexual Orientation [...] Oxygen Saturation 97% 11/06/2022 10: 29 AM CREDIT CLERK Inhaled Oxygen Concentration - - Weight 87.5 [...] 01/28/2021, Additional history exists COVID-19 vaccine series ( season) 2023 12/04/2021, 01/10/2021, 12/13/2020 BMI (ht and wt [...] 16 Negative Negative 09/10/2023 1:47 PM CDT [facility] TYPE 18 Negative Negative 09/10/2023 1:47 PM CDT [facility] OTHER HIGH RISK TYPES Negative Negative 09/10/2023 1:47 PM CDT [facility] TRA LABORATORY Other (Cervical) 09/08/2023 12:00 PM CDT 09/08/2023 5:35 PM CDT Narrative [facility] - 09/10/2023 1:47 PM CDT HPV types 16, 18, 31, 33, 35, 39, 45, 51, 52, 56, 58, 59, 66 and 68 DNA were undetectable or below the pre-set threshold. Methodology: Jay Owen 4800 HPV Test Delmy Kelly RACING BOARD MARKER MICROBIOLOGY [facility] [address] [place] [address], from Last 3 Months or Most Recently Relevant to Health Maintenance Care Teams Treatment Manager Relationship Specialty Start Date End Date Pcp, No . PCP - General 05/20/23 Barbara Doe, MANAGER INFUSION [address] [place] [address] Nurse Practitioner Clinical Nurse Specialist 01/07/[address] [place] [address] Registered Dietitian Automotive Service Manager 01/07/21 Braxton Avery, JULIANAN [address] [place] [address] Registered Nurse Registered Nurse 01/07/[address] [address] Automotive Service Manager 10/27/22
[2024-06-13] MEDS: NIFEdipine 30 MG TAB.ER.24 PO (07:06)
[2024-06-13 07:07] LABS: Basophils Percent Auto 0.6 % (0.0-3.0); Eosinophils Percent Auto 4.5 % (0.0-7.0); Hematocrit 36.3 % (33.0-51.0); Hemoglobin* 11.5 gm/dL (12.0-16.0); Immature Granulocytes Pct Auto 0.4 %; Lymphocytes Percent Auto 15.1 % (20-44); Mean Corpuscular HGB Conc 32 gm/dL (32-36); Mean Corpuscular Hemoglobin 25 pg (26-34); Mean Corpuscular Volume 80 fL (80-100); Monocytes Percent Auto 6.9 % (0.0-11.0); Neutrophils Percent Auto 72.5 % (42.0-72.0); Platelet Count* 369 K/uL (140-440); RDW Coefficient of Variation % 13.1 % (11.5-15.5); Red Blood Count 4.55 m/uL (4.00-5.20); White Blood Count* 14.28 K/uL (4.50-11.00)
[2024-06-13 07:09] VITALS: BP 136/94; PULSE 101; RESP 18
[2024-06-13 07:11] LABS: Slide Review Reflex No
[2024-06-13 07:28] LABS: Albumin* 3.5 g/dL (3.3-5.0)
[2024-06-13 07:29] LABS: Chloride* 106 mmol/L (96-114); Potassium* 3.7 mmol/L (3.6-5.1); Sodium* 135 mmol/L (135-149)
[2024-06-13 07:31] LABS: Anion Gap 6 mEq/L (7-15); Bilirubin Total* 0.4 mg/dL (0.1-1.5); Carbon Dioxide* 23 mmol/L (20-32); Creatinine* 0.5 mg/dL (0.5-1.5); Est. Creatinine Clearance* 132.49; Estimated Glomerular Filt Rate 131 ml/min
[2024-06-13 07:32] LABS: Alanine Aminotransferase* 21 U/L (4-35); Alkaline Phosphatase* 74 U/L (40-150); Aspartate Amino Transferase* 28 U/L (12-35); Blood Urea Nitrogen* 6 mg/dL (5-24); Calcium* 8.7 mg/dL (8.4-10.6); Glucose* 99 mg/dL (60-115); Total Protein* 6.5 g/dL (6.0-8.3); Uric Acid* 3.8 mg/dL (2.2-8.4)
[2024-06-13 07:51] VITALS: BP 143/91
== END 2024-06-13 07:53 | disposition home or self-care (01) ==
PROVIDERS: Emergency Provider Family Medicine
DX: O14.05 Mild to moderate pre-eclampsia, complicating the puerperium (principal)
CPT/HCPCS: 36415; 80053; 83735; 84550; 85025; 99283; 99284; A9270

== ENCOUNTER 2024-08-17 15:10 | Outpatient (CLI) | payer BC, SELFPAY ==
--- OUTSIDE RECORDS SUMMARY | 2024-08-17 15:17 | XMS_ITS | Clinical Summary ---
Author Organization [employer] [facility] Address [place], [place] [address] Care Team Providers Care Patient Financial Services Manager Name Role Phone NaderNigelsilvio Gandara [facility] PRINCIPLE SOFTWARE ENGINEER Unavailable [phone] Unavailable Braxton Avery RN Unavailable Ce Hale RD Unavailable [phone] Pcp, No Primary Care Provider Unavailabl e [...] obesity 12/02/2021 Controlled substance agreement signed 04/23/2021 Overview (04/23/2021): For Medical Weight Loss. Verbal Agreement. Pharmacy: [facility] [place] [phone] Obesity, Class I, BMI 30-34.9 04/23/2021 Vitamin D insufficiency 02/25/2021 Obesity (BMI 30.0-34.9) 02/25/2021 Impaired fasting glucose 02/25/2021 Overweight 01/28/2021 Family history of premature coronary heart disea se 01/28/2021 Screening for endocrine/metabolic/immunity disor ders 01/28/2021 Acanthosis nigricans 07/05/2017 Family history of diabetes mellitus 07/05/2017 Overview (07/05/2017): Both parents, mom on insulin Skin tags, multiple acquired 07/05/2017 Overview (07/05/2017): Left axilla Exercise-induced asthma 01/13/2013 Attention deficit disorder with hyperactivity(31 4.01) 03/16/2007 Resolved Problems Problem Noted Date Diagnosed Date Resolved Date Viral warts, unspecified 06/29/200706/2013 Encounters Date Type Department Care Team Description 06/12/2024 Lab Requisition [facility] [phone] Ce Tillman MD from Last 3 Months [...] IIV4 08/23/2020,08/24/2018,08/26/2016 Influenza, IIV4 (=>6mos) MDV 08/17/2019 MENINGOCOCCAL VACCINE 2 VIAL 2MO-55YO (MENVEO) 04/16/2015 MMR 08/05/2000,04/03/1998 Meningococcal Vaccine (Menactra) 06/14/2008 Oral Polio Vaccine 04/03/1998,02/06/1997, 996 Td (Age [...] recorded on cert ificate 09/30/2021 1:23 PM SCISSORS SHARPENER Gender Identity Not on file Sexual Orientation [...] Oxygen Saturation 97% 11/06/2022 10: 29 AM SCISSORS SHARPENER Inhaled Oxygen Concentration - - Weight 87.5 [...] 01/29/2022 01/29/2021, 01/28/2021, 01/28/2021, Additional history exists BMI (ht and wt on same day) for age 18+ 07/09/2024 07/09/2023, 04/29/2023, 02/18/2023, Additional history exists COVID-19 vaccine series ( season) 2024 12/04/2021, 01/10/2021, 12/13/2020 Influenza for age 9-49 07/09/2024 0, 08/17/2019, 08/24/2018, Additional history exists Pap test for age 21-65 09/08/2026 3, 09/08/2023, 08/15/2020, Additional history exists Tetanus booster 08/24/2028 08/24/2018, 06/14/2008 Tdap Completed 06/14/2008 Pneumococcal series for age 6-64 Aged Out No longer eligible based on patient's age to complete this topic Procedures Procedure Name Priority Date/Time Associated Diagnosis Comments LAB TRACKING EVENT Routine 06/10/2024 6: 21 AM CDT PATH TISSUE EXAM PLACENTA Routine 06/10/2024 5:30 AM CDT PRE[employer] CONCRETE IRONWORKER THIN PREP PAP SCREEN IMAGED Routine 09/08/2023 12:00 PM CDT from Last 3 Months or Most Recently Relevant to Health Maintenance Results * LAB TRACKING EVENT (06/10/2024 6:21 AM CDT) Other (Other) Client Collect / Unknown 06/10/2024 6:21 AM CDT 06/12/2024 2:48 PM CDT Ce Tillman MD LAB BILL ONLY [facility] [address] [place] [id number], * PATH TISSUE EXAM PLACENTA (06/10/2024 5:30 AM CDT) Case Report Pathology Report ?Case: [id number] ? Authorizing Provider: ??Ce Tillman MD ??Collected: ? 06/10/2024 0530 ? Ordering Location: ? [facility] ?Received: ?06/12/2024 1513 ? Pathologist: ? Nanci Gross MD ? Specimen: ?Placenta ? 06/14/2024 4:08 PM CDT [facility] Final Diagnosis A) PLACENTA, DELIVERY: 1. Third trimester walsh placenta with the following characteristics: ? a. Weight: 471 grams (37 week 10-90th percentile weight range, 391 - 566 grams) ? b. Membranes/ surface: ?Negative for chorioamnionitis ? c. Umbilical cord: ?Three vessel cord ?Negative for funisitis ? d. Disc/Villi: ?Chorionic villi consistent with gestational age ?Negative for villitis ?Placental disc without infarcts ? e. Decidua/basal plate: ?No diagnostic abnormalities identified 06/14/2024 4:08 PM T [facility] Clinical Information with maternal diabetes and preeclampsia. Date of delivery 06/10/2024 at 930 but via . 37 weeks. Male liveborn infant 06/14/2024 4:08 PM CDT [facility] LABORAT[facility]-C ENTRAL LABORATORY Gross Description A) Received fresh labeled with the patient's name and placenta, is a 471 gram, 20 x 18 x 2.4 cm walsh placenta. The surface is blue-savage with normal vasculature. The 40 cm long, 2.0 cm diameter trivascular umbilical cord is centrally inserted 9.0 cm from the nearest edge of the placental plate. ??No knots or thrombi are identified. ??The extraplacental membranes are mast, thickened and opaque with marginal insertion. The maternal surface is complete, with smooth rounded contours and minimal loosely clotted blood. ??Sectioning reveals soft, spongy deep red/purple parenchyma. ??No masses or lesions are identified. Mailing Manager sections are submitted: 1. ?? membranes and insertion 2. ??Umbilical cord 3. ??Umbilical cord insertion site 4-5. ??Full-thickness central disc Time and date in formalin: 1206 on 06/13/2024 STN 06/13/2024 06/14/2024 4:08 PM CDT [facility] Microscopic Description The final diagnosis is based on microscopic examination of appropriate sections of all specimens. 06/14/2024 4:08 PM CDT [facility]-C ENTRMT LABORATORY Additional Information Interpreted at [facility] - [address] [facility] [address] [address] 06/14/2024 4:08 PM CDT [facility] Tissue SPECIMEN FROM PLACENTA / Unknown 06/10/2024 5:30 AM CDT 06/12/2024 3:13 PM CDT Ce Tillman MD PATHOLOGY/CYTOLO [facility] [address] [place] [address], * PRECAST CONCRETE IRONWORKER THIN PREP PAP SCREEN IMAGED (09/08/2023 12:00 PM CDT) Case Report Gynecologic Cytology Report ? Case: [id number] ? Authorizing Provider: ??Delmy Kelly, KIZZY ?? Collected: ? 09/08/2023 1200 ? Ordering Location: ? [facility] ?Received: ?09/08/2023 1735 ? First Screen: ?Elena Salinas ? Specimen: ?PRECAST CONCRETE IRONWORKER ThinPrep Vial Screening, Cervical ? 09/14/2023 10:02 AM [facility] [employer] LABORATORY-C ENTRAL LABORATORY INTERPRETATION/ RESULT NEGATIVE FOR INTRAEPITHELIAL LESION OR MALIGNANCY (NIL) (none) 09/14/2023 10:02 AM [facility] [employer]-C ENTRAL LABORATORY NISM(S) Shift in alejandra suggestive of bacterial vaginosis 09/14/2023 10:02 AM [facility] [employer]-[facility] ENTRAL LABORATORY SPECIMEN ADEQUACY Satisfactory for evaluation Endocervical component present 09/14/2023 10:02 AM [facility] [employer] LABORATORY-C ENTRAL LABORATORY HPV REQUEST HPV and PAP 09/14/2023 10:02 AM [facility] [employer] LABORATORY-C ENTRAL LABORATORY Date of LMP 08/30/2023 09/14/2023 10:02 AM [facility] [employer]-[facility] ENTRAL LABORATORY Last Pap Date 08/15/2020 09/14/2023 10:02 AM [facility] [employer] ENTRAL LAB[facility]AT[facility] Last Pap Result NIL 10:02 AM [facility] [employer]-[facility] ENTRAL LABORATORY Abnormal Pap or [place] Bx in last 5 years No 09/14/2023 10:02 AM [facility] [employer]-[facility] ENTRAL LABORATORY Menstrual Status Abnormal bleeding 09/14/2023 10:[address] [facility] [place] Bx Done Today No 09/14/2023 10:[address] [facility] Additional Information 09/14/2023 10:02 AM [facility] ENTRMT LABORATORY Comment: Interpreted at [facility] - [address], [place] [address] Automated Review Successful 09/14/2023 10:02 AM [facility] ENTRMT LABORATORY Comment:Specimen processed s uccessfully by automated strategic accounts manager device, ThinPrep Imaging System, [employer] ANCILLARY TESTING PRECAST CONCRETE IRONWORKER HPV Ordered, Please see separate report 09/14/2023 10:[address] [facility] Note The pap test is a screening technique, not a diagnostic procedure. It is used primarily to screen for squamous cancers and precursor lesions. Published studies have shown that it is subject to both false negative and false positive results. The pap test should not be used as the sole means to diagnose or exclude pre-malignant and malignant lesions. 09/14/2023 10:[address] [facility] Other (Cervical) 09/08/2023 12:00 PM CDT 09/08/2023 5:35 PM CDT Delmy Kelly NP [facility]OLOG[facility] [address] [place] [address], from Last 3 Months or Most Recently Relevant to Health Maintenance Care Teams Patient Financial Services Manager Relationship Specialty Start Date End Date Pcp, No . PCP - General 05/20/23 Barbara Doe Gmitro, PRINCIPLE SOFTWARE ENGINEER [address] [place] [address] Nurse Practitioner Clinical Nurse Specialist 01/07/[address] [place] [address] Registered Dietitian Wind Commissioning Technician 01/07/21 Braxton Avery, JULIANNA [address] [place] [address] Registered Nurse Registered Nurse 01/07/[address] [address] Wind Commissioning Technician 10/27/22
== END 2024-08-17 15:11 | disposition home or self-care (01) ==
PROVIDERS: PCP Registered Nurse; Visit Provider Registered Nurse
DX: R10.12 Left upper quadrant pain (principal)
CPT/HCPCS: 80053; 83690; 86140

== ENCOUNTER 2024-08-18 19:48 | Emergency (ER) | payer BC, SELFPAY ==
[2024-08-18] VITALS (9 sets, daily range): BP systolic 126–134; BP diastolic 82–97; PULSE 78–89; RESP 16; TEMP 36.5; O2SAT 95–99; BMI 38.0
--- NOTE | 2024-08-18 20:06 | ED.ABDPAIN ---
HPI - Abdominal Pain General Time Seen by Provider: 20:06 Date Seen: 08/18/24 Chief Complaint: Abdominal Pain Stated Complaint: complains of abdominal pains and trouble breathing Time Seen by Provider: 08/18/24 20:06 Source: patient, family, RN notes reviewed and old records reviewed Mode of arrival: ambulatory Limitations: no limitations History of Present Illness HPI narrative: Catherine is a very pleasant 29-year-old female with history of emergent secondary to preeclampsia in June, cholecystectomy in 2016 who comes to the emergency room for evaluation regarding abdominal pain and retching. Lisa notes for the last 2 weeks she has had intermittent problems with abdominal pain mainly epigastric after eating. This has been intermittent. Tonight she had this happen and had retching as well. The pain then began radiating into her back. She denies any skin changes, itching or swelling after that. She has not had a problem with food allergies in the past but that was suggested to her at a recent provider visit. She denies any diarrhea constipation or difficulty with stooling. Lisa was seen by provider yesterday at which time they noted that her white count was elevated and other values were outstanding at that time. notes that Lisa was on ibuprofen for quite some time after her for discomfort as she did not want to use the oxycodone that had been given to her. She has otherwise been a healthy female. She does note that the pain is a lot like pain associated with her biliary colic prior to her gallbladder removal. She has no personal or family history of autoimmune illnesses, celiac disease, discrete food allergies. She Lisa feels like she may be more distended than normal. She has again been having normal bowel movements. She was instructed to start omeprazole but states the pharmacy did not have that repaired. She and her were surprised to find out that this medication is actually [id number]. Related Data Home Medications ?Medication ?Instructions ?Recorded ?Confirmed albuterol 90 mcg/actuation aerosol 2 spray inhalation BID-QID PRN 03/30/23 08/18/24 inhaler docosahexaenoic acid 200 mg 1 mg PO 11/16/23 08/17/24 capsule ( DHA) cholecalciferol (vitamin D3) 125 125 mcg PO QDAY 02/06/24 10/11/24 mcg (5,000 unit) capsule nifedipine 30 mg tablet,extended 30 mg PO BID 07/25/24 08/18/24 release 24 hr Previous Rx's ?Medication ?Instructions ?Recorded omeprazole 40 mg capsule,delayed 40 mg PO QDAY 4 weeks #28 caps 08/17/24 release Allergies Allergy/AdvReac Type Severity Reaction Status Date / Time No Known Drug Allergies Allergy Verified 08/18/24 19:51 Review of Systems Status of ROS Reports: 10 or more systems reviewed and unremarkable except as noted in History and below Const Denies: fever, chills or fatigue Eyes Denies: change in vision ENMT Denies: throat pain, neck pain or nasal discharge Cardio Denies: chest pain, palpitations, swelling of feet/ankles or lightheadedness Resp Denies: cough GI Reports: abdominal pain, nausea and vomiting; Denies: diarrhea, constipation or blood in stool Denies: painful urination or urinary frequency Musculo Reports: back pain; Denies: neck pain Integ/Breast Reports: redness (Rosacea of face); Denies: rash or itching Neuro Denies: headache Endo Denies: fatigue PFSH PFS Medical History History of gestational diabetes in prior , currently ?O09.299 - Supervision of with other poor reproductive or obstetric history, unspecified trimester (ICD-10) ?Z86.32 - Personal history of gestational diabetes (ICD-10) Abnormal uterine bleeding (AUB) ?N93.9 - Abnormal uterine and vaginal bleeding, unspecified (ICD-10) 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 (ICD-10) Surgical History History of tympanoplasty ?Z98.890 - Other specified postprocedural states (ICD-10) History of tonsillectomy and adenoidectomy ?Z90.89 - Acquired absence of other organs (ICD-10) History of wisdom tooth extraction ?K08.409 - Partial loss of teeth, unspecified cause, unspecified class (ICD-10) History of cholecystectomy (04/12/17) ?Z90.49 - Acquired absence of other specified parts of digestive tract (ICD-10) Family History Mother High blood pressure Diabetes Stroke Obesity Father High blood pressure Diabetes High cholesterol Stroke Obesity Maternal Grandfather Lung cancer Maternal Grandmother Breast cancer Colon cancer 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 ? Education: bachelors ? 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 ? Partner: Jcarlos, , aircraft structural repair mechanic? ? Lives with: Jcarlos? ? Pets: dogs? ? Abuse: Denies past. Unable to assess current, partner present? ? Special Diet: Denies? ? Ok with a blood transfusion: yes? ? Culture or judaism beliefs: denies? RISK FACTORS? ? Exercise Times/wk: Walking, less so now. ? ? Depression/Anxiety: denies? ? Previous Treatments: NA Therapy:NA Seat Belt Use: Routinely ? Smoking: Denies past/present? ? Alcohol/day: Denies while ? ? Caffeine: minimal? ? Drug Use: Denies past/present? ? What is your current living situation?: I presently have a place to live Problems where you live: no known problems In the past 12 months, utilities in danger of being shut off: no In past 12 months, lack of transportation kept you from medical appts, meetings, work, or getting things needed for daily living: no In the past 12 mos, have been you worried that your food would run out before you had money to buy more?: never true In the past 12 mos, the food you bought just didn't last and you didn't have money to buy more?: never true Smoking Status: Former smoker Do you use any of these nicotine containing products: None Second hand tobacco smoke exposure: No How often do you have a drink containing alcohol: never AUDIT-C Alcohol total score: 0 Non-prescribed substance use: denies use How often does anyone, including family, friends and others, physically hurt you: never How often does anyone, including family, friends and others, insult or talk down to you: never How often does anyone, including family, friends and others, threaten you with harm: never How often does anyone, including family, friends and others, scream or curse at you: never Little interest or pleasure in doing things: not at all Feeling down, depressed, or hopeless: not at all service: No Exam Const: Vital Signs, click to edit/add: Vital Signs - 24 hr 08/18/24 19:52 08/18/24 20:06 08/18/24 20:15 Temperature 97.7 F Pulse Rate 84 79 Pulse Rate [Pulse Oximeter] 89 Respiratory Rate 16 Blood Pressure Blood Pressure [Ri ght Upper Arm] 126/82 Pulse Oximetry 96 97 97 Oxygen Delivery Me thod Room Air 08/18/24 20:30 08/18/24 20:32 08/18/24 20:45 Temperature Pulse Rate 79 81 83 Pulse Rate [Pulse Oximeter] Respiratory Rate Blood Pressure 128/91 H Blood Pressure [Ri ght Upper Arm] Pulse Oximetry 98 97 99 Oxygen Delivery Me thod 08/18/24 21:00 08/18/24 21:01 08/18/24 21:03 Temperature Pulse Rate 84 78 82 Pulse Rate [Pulse Oximeter] Respiratory Rate Blood Pressure 134/97 H Blood Pressure [Ri ght Upper Arm] Pulse Oximetry 95 98 99 Oxygen Delivery Me thod Course Course ED Course: Differential diagnosis includes but is not limited to gastritis, ulcer, food allergy, celiac disease, anxiety, esophagitis, small-bowel obstruction. At this time will recheck labs as I do note elevated white count over 15,000 yesterday. Predominance of eosinophils. Will also check comprehensive panel and CRP. While awaiting these values will give Catherine 40 mg of IV Protonix. Reevaluation(s) Reevaluation #1: Patient received Protonix. Well her stomach still hurts she has improved from earlier. Vital Signs Vital signs: Initial Vital Signs Temperature 97.7 F 08/18/24 19:52 Temperature Source Temporal Artery Scan 08/18/24 19:52 Pulse Rate 89 08/18/24 19:52 Respiratory Rate 16 08/18/24 19:52 Blood Pressure 126/82 08/18/24 19:52 Blood Pressure Mean 96 08/18/24 19:52 Blood Pressure Position High-Fowlers 08/18/24 19:52 Pulse Oximetry 96 08/18/24 19:52 Oxygen Delivery Method Room Air 08/18/24 19:52 Vital Signs Temperature 97.7 F 08/18/24 19:52 Pulse Rate 89 08/18/24 19:52 Respiratory Rate 16 08/18/24 19:52 Blood Pressure 126/82 08/18/24 19:52 Pulse Oximetry 96 08/18/24 19:52 Oxygen Delivery Method Room Air 08/18/24 19:52 Temperature 97.7 F 08/18/24 19:52 Pulse Rate 82 08/18/24 21:03 Respiratory Rate 16 08/18/24 19:52 Blood Pressure 134/97 H 08/18/24 21:01 Pulse Oximetry 99 08/18/24 21:03 Oxygen Delivery Method Room Air 08/18/24 19:52 Medications Administered Medications: Discontinued Medications Generic Name Dose Route Start Last Admin Trade Name Freq PRN Reason Stop Dose Admin Pantoprazole Sodium 40 mg 08/18/24 20:23 08/18/24 20:33 Pantoprazole Sodium 40 Mg Inj IVP 08/18/24 20:24 40 mg ONCE ONE Administration MDM - Abdominal Pain MDM Narrative Medical decision making narrative: 1. Gastritis-at this time patient is improved. Would recommend continuing omeprazole 40 mg daily for the next 2 weeks. Avoid ibuprofen or other NSAIDs at this time. Suggest follow-up for endoscopies with our surgeons. Phone number is given in discharge instructions. White count tonight is improved from yesterday. No change on comprehensive panel. 2. Disposition-home at this time. Return for fever, vomiting, worsening symptoms and as needed. Medical Records Attestation: I reviewed the patient's medical records. Lab Data Attestation: I reviewed the patient's lab results. Labs: Lab Results 08/18/24 Range/Units 20:40 WBC 14.16 H (4.50-11.00) K/uL RBC 5.32 H (4.00-5.20) m/uL Hgb 13.4 (12.0-16.0) gm/dL Hct 41.1 (33.0-51.0) % MCV 77 L (80-100) fL MCH 25 L (26-34) pg MCHC 33 (32-36) gm/dL RDW Coeff of Hussein 15.1 (11.5-15.5) % Plt Count 355 (140-440) K/uL Neut % (Auto) 52.7 (42.0-72.0) % Lymph % (Auto) 24.5 (20-44) % Woodward % (Auto) 6.9 (0.0-11.0) % Eos % (Auto) 15.3 H (0.0-7.0) % Baso % (Auto) 0.5 (0.0-3.0) % Neut # (Auto) 7.50 H (1.7-7.0) K/uL Lymph # (Auto) 3.50 H (0.90-2.90) K/uL Woodward # (Auto) 1.00 H (0.00-0.90) K/UL Eos # (Auto) 2.20 H (0.00-0.50) K/uL Baso # (Auto) 0.10 (0.00-0.30) K/uL Abs Immat Gran (auto) 0.00 (0.00-0.30) K/uL Imm/Tot Granulo (auto) 0.1 % Sodium 138 (135-149) mmol/L Potassium 3.6 (3.6-5.1) mmol/L Chloride 100 (96-114) mmol/L Carbon Dioxide 27 (20-32) mmol/L Anion Gap 11 (7-15) mEq/L BUN 17 (5-24) mg/dL Creatinine 0.8 (0.5-1.5) mg/dL Estimated Creat Clear 82.80 Estimated GFR 103 ml/min Glucose 115 (60-115) mg/dL Calcium 9.4 (8.4-10.6) mg/dL Total Bilirubin 0.2 (0.1-1.5) mg/dL AST 30 (12-35) U/L ALT 32 (4-35) U/L Alkaline Phosphatase 82 (40-150) U/L C-Reactive Protein < 0.5 L (0.5-1.0) mg/dL Total Protein 7.5 (6.0-8.3) g/dL Albumin 4.5 (3.3-5.0) g/dL Discharge Plan Discharge Clinical Impression: Gastritis Qualifiers: Gastritis type: other gastritis Chronicity: acute Gastritis bleeding: without bleeding Qualified Code(s): K29.00 - Acute gastritis without bleeding Patient Disposition: Home, Self-Care Condition: Improved Additional Instructions: Continue omeprazole nightly. [id number]-[id number] this would be 2 tablets that equals 40 mg. I would suggest doing this for 2 weeks. Avoid ibuprofen if you can. This would also include Aleve, Motrin, Advil, Naprosyn. Do a trial of soft foods to see if any of this makes a difference. I would recommend following up with our surgeons who are adept at endoscopy and scoping. The phone number for follow-up is [phone] Return to the emergency room for worsening symptoms such as high fever, sudden unexplained weight loss, vomiting of blood. Prescriptions: No Action cholecalciferol (vitamin D3) 125 mcg (5,000 unit) capsule 125 mcg PO QDAY nifedipine 30 mg tablet extended release 24hr 30 mg PO BID albuterol 90 mcg/actuation aerosol 2 spray inhalation BID-QID PRN Hold Instructions: Doctor's Order Rx Instructions: 1 - 2 sprays inhaled DIRECTED PRN; DHA 200 mg capsule 1 mg PO omeprazole 40 mg capsule,delayed release(DR/EC) 40 mg PO QDAY 28 Days Qty: 28 1RF Follow Up/Referrals: Sharon Goins, MANAGER OF DISASTER RECOVERY [Primary Care Provider] - Stand Alone Forms: Reble Info Instructions
--- OUTSIDE RECORDS SUMMARY | 2024-08-18 20:32 | XMS_ITS | Clinical Summary ---
Author Organization [facility] Address [place], [place] [address] Care Team Providers Care Resort Host Name Role Phone NaderNigelsilvio Gandara [facility] TOBACCO FEEDER CATCHER Unavailable [phone] Unavailable Braxton Avery RN Unavailable Ce Hale RD Unavailable [phone] Pcp, No Primary Care Provider Unavailabl e [...] Loss. Verbal Agreement. Pharmacy: [facility] [place] [phone] Obesity, Class I, BMI 30-34.9 04/23/2021 Vitamin [...] Department Care Team Description 06/12/2024 Lab Requisition [facility] [phone] Ce Tillman MD from Last 3 Months [...] recorded on cert ificate 09/30/2021 1:23 PM [facility] Gender Identity Not on file Sexual Orientation [...] Oxygen Saturation 97% 11/06/2022 10: 29 AM [facility] Inhaled Oxygen Concentration - - Weight 87.5 [...] EXAM PLACENTA Routine 06/10/2024 5:30 AM CDT MECHANICAL ENGINEERING DIRECTOR THIN PREP PAP SCREEN IMAGED Routine 09/08/2023 12:00 PM CDT from Last 3 Months or Most Recently Relevant to Health Maintenance Results * LAB TRACKING EVENT (06/10/2024 6:21 AM CDT) Other (Other) Client Collect / Unknown 06/10/2024 6:21 AM CDT 06/12/2024 2:48 PM CDT Ce Tillman MD LAB BILL ONLY [facility] [address] [place] [id number], * PATH TISSUE EXAM PLACENTA (06/10/2024 5:30 AM CDT) Case Report Pathology Report ?Case: [id number] ? Authorizing Provider: ??Ce Tillman MD ??Collected: ? 06/10/2024 0530 ? Ordering Location: ? [facility] ?Received: ?06/12/2024 1513 ? Pathologist: ? Nanci Gross MD ? Specimen: ?Placenta ? 06/14/2024 4:08 PM CDT [facility] Final Diagnosis A) PLACENTA, [...] diagnostic abnormalities identified 06/14/2024 4:08 PM T [facility] Clinical Information with maternal diabetes and preeclampsia. Date of delivery 06/10/2024 at 930 but via . 37 weeks. Male liveborn infant 06/14/2024 4:08 PM CDT [facility] LABORAT[facility]-C ENTRAL LABORATORY Gross Description A) Received [...] parenchyma. ??No masses or lesions are identified. Wind Turbine Erector sections are submitted: 1. ?? membranes and insertion 2. ??Umbilical cord 3. ??Umbilical cord insertion site 4-5. ??Full-thickness central disc Time and date in formalin: 1206 on 06/13/2024 STN 06/13/2024 06/14/2024 4:08 PM CDT [facility] Microscopic Description The final diagnosis is based on microscopic examination of appropriate sections of all specimens. 06/14/2024 4:08 PM CDT [facility]-C ENTRFL LABORATORY Additional Information Interpreted at [facility] - [address] [facility] [address], [place] [address] 06/14/2024 4:08 PM CDT [facility] Tissue SPECIMEN FROM PLACENTA / Unknown 06/10/2024 5:30 AM CDT 06/12/2024 3:13 PM CDT Ce Tillman MD PATHOLOGY/CYTOLO [facility] [address] [place] [address], * MECHANICAL ENGINEERING DIRECTOR THIN PREP PAP SCREEN IMAGED (09/08/2023 12:00 PM CDT) Case Report Gynecologic Cytology Report ? Case: [id number] ? Authorizing Provider: ??Delmy Kelly, KIZZY ?? Collected: ? 09/08/2023 1200 ? Ordering Location: ? [facility] ?Received: ?09/08/2023 1735 ? First Screen: ?Elena Salinas ? Specimen: ?MECHANICAL ENGINEERING DIRECTOR ThinPrep Vial Screening, Cervical ? 09/14/2023 10:02 AM [facility] [employer] LABORATORY-C ENTRAL LABORATORY INTERPRETATION/ RESULT NEGATIVE FOR INTRAEPITHELIAL LESION OR MALIGNANCY (NIL) (none) 09/14/2023 10:02 AM [facility] [employer] [facility]-C ENTRAL LABORATORY NISM(S) Shift in alejandra suggestive of bacterial vaginosis 09/14/2023 10:02 AM [facility] [employer] [facility] SPECIMEN ADEQUACY Satisfactory for evaluation Endocervical component present 09/14/2023 10:02 AM [facility] [employer] LABORATORY-C ENTRAL LABORATORY HPV REQUEST HPV and PAP 09/14/2023 10:02 AM [facility] [employer] LABORATORY-C ENTRAL LABORATORY Date of LMP 08/30/2023 09/14/2023 10:02 AM [facility] [employer] [facility] Last Pap Date 08/15/2020 09/14/2023 10:02 AM [facility] [employer] [facility] Last Pap Result NIL 10:02 AM [facility] [employer] [facility] Abnormal Pap or [place] Bx in last 5 years No 09/14/2023 10:02 AM [facility] [employer] [facility] Menstrual Status Abnormal bleeding 09/14/2023 10:02 AM [facility] [place] Bx Done Today No 09/14/2023 10:02 AM [facility] Additional Information 09/14/2023 10:02 AM [facility] LABORAT[facility] Comment: Interpreted at [facility] - [address] [place], [place] [address] Automated Review Successful 09/14/2023 10:02 AM [facility] Comment:Specimen processed s uccessfully by automated lunch cook device, ThinPrep Imaging System, [employer] ANCILLARY TESTING MECHANICAL ENGINEERING DIRECTOR HPV Ordered, Please see separate report 09/14/2023 10:02 AM [facility] Note The pap test is [...] pre-malignant and malignant lesions. 09/14/2023 10:02 AM [facility] Other (Cervical) 09/08/2023 12:00 PM CDT 09/08/2023 5:35 PM CDT Delmy Kelly NP [facility]OLOG[facility] [address] [place] [address], from Last 3 Months or Most Recently Relevant to Health Maintenance Care Teams Resort Host Relationship Specialty Start Date End Date Pcp, No . PCP - General 05/20/23 Barbara Doe Gmitro, TOBACCO FEEDER CATCHER [address] [place] [address] Nurse Practitioner Clinical Nurse Specialist 01/07/[address] [place] [address] Registered Dietitian Metal Bed Assembler 01/07/21 Braxton Avery, JULIANNA [address] [place] [address] Registered Nurse Registered Nurse 01/07/[address] [address] Metal Bed Assembler 10/27/22
[2024-08-18] MEDS: PANTOPRAZOLE SODIUM 40 MG INJ IVP (20:33)
[2024-08-18 20:49] LABS: Basophils Percent Auto 0.5 % (0.0-3.0); Eosinophils Percent Auto 15.3 % (0.0-7.0); Hematocrit 41.1 % (33.0-51.0); Hemoglobin* 13.4 gm/dL (12.0-16.0); Immature Granulocytes Pct Auto 0.1 %; Lymphocytes Percent Auto 24.5 % (20-44); Mean Corpuscular HGB Conc 33 gm/dL (32-36); Mean Corpuscular Hemoglobin 25 pg (26-34); Mean Corpuscular Volume 77 fL (80-100); Monocytes Percent Auto 6.9 % (0.0-11.0); Neutrophils Percent Auto 52.7 % (42.0-72.0); Platelet Count* 355 K/uL (140-440); RDW Coefficient of Variation % 15.1 % (11.5-15.5); Red Blood Count 5.32 m/uL (4.00-5.20); White Blood Count* 14.16 K/uL (4.50-11.00)
[2024-08-18 20:50] LABS: Slide Review Reflex No
[2024-08-18 21:01] LABS: Albumin* 4.5 g/dL (3.3-5.0); Chloride* 100 mmol/L (96-114); Potassium* 3.6 mmol/L (3.6-5.1); Sodium* 138 mmol/L (135-149)
[2024-08-18 21:03] LABS: Creatinine* 0.8 mg/dL (0.5-1.5); Estimated Glomerular Filt Rate 103 ml/min
[2024-08-18 21:04] LABS: Alanine Aminotransferase* 32 U/L (4-35); Alkaline Phosphatase* 82 U/L (40-150); Anion Gap 11 mEq/L (7-15); Aspartate Amino Transferase* 30 U/L (12-35); Bilirubin Total* 0.2 mg/dL (0.1-1.5); Blood Urea Nitrogen* 17 mg/dL (5-24); Carbon Dioxide* 27 mmol/L (20-32); Total Protein* 7.5 g/dL (6.0-8.3)
[2024-08-18 21:05] LABS: Calcium* 9.4 mg/dL (8.4-10.6); Glucose* 115 mg/dL (60-115)
[2024-08-18 21:07] LABS: C Reactive Protein* < 0.5 mg/dL (0.5-1.0)
== END 2024-08-18 21:29 | disposition home or self-care (01) ==
PROVIDERS: Emergency Provider Family Medicine; PCP Registered Nurse
DX: K29.00 Acute gastritis without bleeding (principal)
CPT/HCPCS: 36415; 80053; 85025; 86140; 96374; 99283; 99284; J2470

== ENCOUNTER 2024-08-29 08:59 | Outpatient (CLI) | payer BC, SELFPAY ==
--- OUTSIDE RECORDS SUMMARY | 2024-08-29 09:01 | XMS_ITS | Clinical Summary ---
Author Organization [facility] Address [place], [place] [address] Care Team Providers Care Production Department Supervisor Name Role Phone NaderNigelsilvio Gandara [facility] FURNITURE ASSEMBLER Unavailable [phone] Unavailable [phone] Braxton Avery RN Unavailable Ce Hale RD Unavailable [phone] Pcp, No Primary Care Provider Unavailabl e [...] Loss. Verbal Agreement. Pharmacy: [facility] [place] [phone] Obesity, Class I, BMI 30-34.9 04/23/2021 Vitamin [...] Department Care Team Description 06/12/2024 Lab Requisition [facility] [phone] Ce Tillman MD from Last 3 Months [...] recorded on cert ificate 09/30/2021 1:23 PM DENITRATOR OPERATOR Gender Identity Not on file Sexual [...] Oxygen Saturation 97% 11/06/2022 10: 29 AM DENITRATOR OPERATOR Inhaled Oxygen Concentration - - Weight [...] EXAM PLACENTA Routine 06/10/2024 5:30 AM CDT GROUNDS MANAGER THIN PREP PAP SCREEN IMAGED Routine 09/08/2023 12:00 PM CDT from Last 3 Months or Most Recently Relevant to Health Maintenance Results * LAB TRACKING EVENT (06/10/2024 6:21 AM CDT) Other (Other) Client Collect / Unknown 06/10/2024 6:21 AM CDT 06/12/2024 2:48 PM CDT Ce Tillman MD LAB BILL ONLY [facility] [address] [place] [id number], * PATH TISSUE EXAM PLACENTA (06/10/2024 5:30 AM CDT) Case Report Pathology Report ?Case: [id number] ? Authorizing Provider: ??Ce Tillman MD ??Collected: ? 06/10/2024 0530 ? Ordering Location: ? [facility] ?Received: ?06/12/2024 1513 ? Pathologist: ? Nanci Gross MD ? Specimen: ?Placenta ? 06/14/2024 4:08 PM CDT [facility] Final Diagnosis A) PLACENTA, [...] diagnostic abnormalities identified 06/14/2024 4:08 PM T [facility] Clinical Information with maternal diabetes and preeclampsia. Date of delivery 06/10/2024 at 930 but via . 37 weeks. Male liveborn infant 06/14/2024 4:[address] [facility] Gross Description A) Received [...] parenchyma. ??No masses or lesions are identified. [employer] Logger sections are submitted: 1. ?? membranes and insertion 2. ??Umbilical cord 3. ??Umbilical cord insertion site 4-5. ??Full-thickness central disc Time and date in formalin: 1206 on 06/13/2024 STN 06/13/2024 06/14/2024 4:08 PM CDT [facility] Microscopic Description The final diagnosis is based on microscopic examination of appropriate sections of all specimens. 06/14/2024 4:08 PM CDT [facility] Additional Information Interpreted at [facility] - [address] [facility] [address], [place] [address] 06/14/2024 4:08 PM CDT [facility] Tissue SPECIMEN FROM PLACENTA / Unknown 06/10/2024 5:30 AM CDT 06/12/2024 3:13 PM CDT Ce Tillman MD PATHOLOGY/CYTOLO GY [facility] [address] [place] [address], * GROUNDS MANAGER THIN PREP PAP SCREEN IMAGED (09/08/2023 12:00 PM CDT) Case Report Gynecologic Cytology Report ? Case: [id number] ? Authorizing Provider: ??Delmy Kelly, KIZZY ?? Collected: ? 09/08/2023 1200 ? Ordering Location: ? [facility] ?Received: ?09/08/2023 1735 ? First Screen: ?Elena Salinas ? Specimen: ?GROUNDS MANAGER ThinPrep Vial Screening, Cervical ? 09/14/2023 10:02 AM [email or web address] ENTRAL LABORATORY INTERPRETATION/ RESULT NEGATIVE FOR INTRAEPITHELIAL LESION OR MALIGNANCY (NIL) (none) 09/14/2023 10:02 AM [facility] ENTRAL LABORATORY NISM(S) Shift in alejandra suggestive of bacterial vaginosis 09/14/2023 10:02 AM [facility] SPECIMEN ADEQUACY Satisfactory for evaluation Endocervical component present 09/14/2023 10:02 AM [email or web address] ENTRAL LABORATORY HPV REQUEST HPV and PAP 09/14/2023 10:02 AM [email or web address] EN[facility] LABORATORY Date of LMP 08/30/2023 09/14/2023 10:02 AM [facility] Last Pap Date 08/15/2020 09/14/2023 10:02 AM [facility] Last Pap Result NIL 10:02 AM [facility] Abnormal Pap or [place] Bx in last 5 years No 09/14/2023 10:02 AM [facility] Menstrual Status Abnormal bleeding 09/14/2023 10:02 AM [facility] [place] Bx Done Today No 09/14/2023 10:02 AM [facility] Additional Information 09/14/2023 10:02 AM [facility] Comment: Interpreted at [facility] - [address] [place], [place] [address] Automated Review Successful 09/14/2023 10:02 AM [facility] Comment:Specimen processed s uccessfully by automated medical van driver device, ThinPrep Imaging System, [email or web address] ANCILLARY TESTING GROUNDS MANAGER HPV Ordered, Please see separate report 09/14/2023 10:02 AM [facility] Note The pap test is [...] pre-malignant and malignant lesions. 09/14/2023 10:02 AM [facility] Other (Cervical) 09/08/2023 12:00 PM CDT 09/08/2023 5:35 PM CDT Delmy Kelly NP PATHOLOGY/CY[facility]OLOG [facility] [address] [place] [address], from Last 3 Months or Most Recently Relevant to Health Maintenance Care Teams Production Department Supervisor Relationship Specialty Start Date End Date Pcp, No . PCP - General 05/20/23 Barbara Doe Gmitro, FURNITURE ASSEMBLER [address] [place] [address] Nurse Practitioner Clinical Nurse Specialist 01/07/[address] [place] [address] Registered Dietitian Information Tech 01/07/21 Braxton Avery, JULIANNA [address] [place] [address] Registered Nurse Registered Nurse 01/07/[address] [address] Information Tech 10/27/22
[2024-08-29 09:35] LABS: Ur HCG Qualitative* Negative (Negative)
--- NOTE | 2024-08-29 10:05 | W.ANESCHARGE ---
Anesthesia Charges Start Date/Time Anesthesia Start Date: 08/29/24 Anesthesia Start Time: 09:50 Stop Date/Time Anesthesia Stop Date: 08/29/24 Anesthesia Stop Time: 10:09
--- NOTE | 2024-08-29 10:11 | W.ANESCHARGE ---
Anesthesia Charges Start Date/Time Anesthesia Start Date: 08/29/24 Anesthesia Start Time: 09:50 Stop Date/Time Anesthesia Stop Date: 08/29/24 Anesthesia Stop Time: 10:09
== END 2024-08-29 09:00 | disposition home or self-care (01) ==
LOC: OP CLINIC 08:59
PROVIDERS: PCP Registered Nurse; Visit Provider Surgery
DX: R19.8 Other specified symptoms and signs involving the digestive system and abdomen (principal); K31.89 Other diseases of stomach and duodenum
CPT/HCPCS: 00731; 43239; 81025; 88305; 88342; J2704; J3010